=== PATIENT | female | born 1995 | race Two or more races ===

== ENCOUNTER 2018-11-09 09:20 | Inpatient (IN) | payer SELFPAY ==
[2018-11-09] MEDS ORDERED: Sodium Chloride 0.9% 1,000 ML IV ONE ×2 (09:45→11:02)
[2018-11-09] MEDS ORDERED: Ondansetron 4 MG/2 ML SDV IVPUSH ONE (09:45)
[2018-11-09] MEDS ORDERED: HYDROmorphone 1 MG/ML Syringe IVPUSH ONE (09:45)
--- NOTE | 2018-11-09 09:49 | EDM.PDOC ---
ED HPI GENERAL MEDICAL PROBLEM - General Stated Complaint: PAIN ON RT SIDE Time Seen by Provider: 11/09/18 09:37 - History of Present Illness INITIAL COMMENTS - FREE TEXT/NARRATIVE: HISTORY AND PHYSICAL: History of present illness: Patient is a 23-year-old female sensory concern of abdominal pain she states this is greatest in the right lower quadrant she was seen at [facility] yesterday for same and had ultrasound demonstrated a right ovarian cyst she states was no evidence of ruptured that time she states pain is worse today and she is concerned about appendicitis Review of systems: As per history of present illness and below otherwise all systems reviewed and negative. Past medical history: As per history of present illness and as reviewed below otherwise noncontributory. Surgical history: As per history of present illness and as reviewed below otherwise noncontributory. Social history: No reported history of drug or alcohol abuse. Family history: As per history of present illness and as reviewed below otherwise noncontributory. Physical exam: HEENT: Atraumatic, normocephalic, pupils reactive, negative for conjunctival pallor or scleral icterus, mucous membranes moist, throat clear, neck supple, nontender, trachea midline. Lungs: Clear to auscultation, breath sounds equal bilaterally, chest nontender. Heart: S1S2, regular, negative for clicks, rubs, or JVD. Abdomen: Soft, tenderness noted greatest in the right lower quadrant there is some voluntary guarding.. Negative for masses or hepatosplenomegaly. Negative for costovertebral tenderness. Pelvis: Stable nontender. Genitourinary: Deferred. Rectal: Deferred. Extremities: Atraumatic, negative for cords or calf pain. Neurovascular unremarkable. Neuro: Awake, alert, oriented. Cranial nerves II through XII unremarkable. Cerebellum unremarkable. Motor and sensory unremarkable throughout. Exam nonfocal. Diagnostics: EBC CMP hCG UA with reflex micral CT abdomen and pelvis Therapeutics: Normal saline 1 L bolus Dilaudid 1 mg IV Zofran 4 mg IV Impression: #1 abdominal pain #2 history of right ovarian cyst Definitive disposition and diagnosis as appropriate pending reevaluation and review of above. RLQ Pain Score (Numeric/FACES): 3 - Related Data Allergies Allergy/AdvReac Type Severity Reaction Status Date / Time No Known Allergies Allergy Verified 11/09/18 09:54 Home Meds: Home Meds . [No Known Home Meds] 09/11/14 [History] Past Medical History - Past Health History Medical/Surgical History: Denies Medical/Surgical History ED ROS GENERAL - Review of Systems Review Of Systems: ROS reveals no pertinent complaints other than HPI. ED EXAM, GENERAL - Physical Exam Exam: See Below (See dictated) Course - Vital Signs Last Recorded V/S: Last Vital Signs Temp 36.1 C 11/10/18 04:00 Pulse 100 11/10/18 04:00 Resp 14 11/10/18 04:00 BP 96/52 L 11/10/18 04:00 Pulse Ox 96 11/10/18 04:00 - Orders/Labs/Meds Orders: Active Orders 24 hr Category Date Time Status Notify Provider Consults [RC] ASDIRECTED Care 11/09/18 12:42 Active Consult to Physician [CONS] Stat Cons 11/09/18 12:41 Active Consult to Physician [CONS] Stat Cons 11/09/18 12:43 Active CULTURE BLOOD [BC] Stat Lab 11/09/18 10:50 Received CULTURE BLOOD [BC] Stat Lab 11/09/18 11:06 Received Blood Culture x2 Reflex Set [OM.PC] Stat Oth 11/09/18 10:42 Ordered Medication Orders Acetaminophen (Tylenol) 650 mg PO Q4H PRN PRN Reason: Pain (Mild 1-3)/fever Last Admin: 11/10/18 00:23 Dose: 650 mg Admin: 11/09/18 14:28 Dose: 650 mg Hydrocodone Bitart/Acetaminophen ([place] 325-5 Mg) 1 - 2 tab PO Q4H PRN PRN Reason: Pain (moderate 4-6) Last Admin: 11/10/18 05:17 Dose: 1 tab Docusate Sodium (Colace) 100 mg PO BID PRN PRN Reason: Constipation Metronidazole 500 mg/ Premix 100 mls @ 100 mls/hr IV Q6H FERMÍN Last Admin: 11/10/18 06:04 Dose: 100 mls/hr Infusion: 11/10/18 02:37 Dose: 100 mls/hr Admin: 11/10/18 01:37 Dose: 100 mls/hr Infusion: 11/09/18 18:59 Dose: 100 mls/hr Admin: 11/09/18 17:59 Dose: 100 mls/hr Piperacillin Sod/Tazobactam (Sod 3.375 gm/ Sodium Chloride) 50 mls @ 100 mls/ hr IV Q6H [facility] Last Admin: 11/10/18 05:11 Dose: 100 mls/hr Infusion: 11/10/18 00:43 Dose: 100 mls/hr Admin: 11/10/18 00:13 Dose: 100 mls/hr Infusion: 11/09/18 17:40 Dose: 100 mls/hr Admin: 11/09/18 17:10 Dose: 100 mls/hr Sodium Chloride (Normal Saline) 1,000 mls @ 125 mls/hr IV ASDIRECTED [facility] Last Admin: 11/10/18 00:14 Dose: 125 mls/hr Infusion: 11/09/18 22:28 Dose: 125 mls/hr Admin: 11/09/18 14:28 Dose: 125 mls/hr Ondansetron HCl (Zofran) 4 mg IVPUSH Q4H PRN PRN Reason: Nausea Labs: Laboratory Tests 11/09/18 11/09/18 11/09/18 Range/Units 10:00 10:00 10:00 WBC 25.84 H (4.0-11.0) K/uL RBC 4.40 (4.30-5.90) M/uL Hgb 13.5 (12.0-16.0) g/dL Hct 40.1 (36.0-46.0) % MCV 91.1 (80.0-98.0) fL MCH 30.7 (27.0-32.0) pg MCHC 33.7 (31.0-37.0) g/dL RDW Std Deviation 45.8 (28.0-62.0) fl RDW Coeff of Kina 14 (11.0-15.0) % Plt Count 304 (150-400) K/uL MPV 10.30 (7.40-12.00) fL Add Manual Diff YES Neutrophils % (Manual) 68 (48.0-80.0) % Band Neutrophils % 16 % Lymphocytes % (Manual) 14 L (16.0-40.0) % Monocytes % (Manual) 1 (0.0-15.0) % Eosinophils % (Manual) 1 (0.0-7.0) % Nucleated RBC % 0.0 /100WBC Absolute Seg Neuts 17.6 H (1.4-5.7) Band Neutrophils # 4.1 Lymphocytes # (Manual) 3.6 H (0.6-2.4) Monocytes # (Manual) 0.3 (0.0-0.8) Eosinophils # (Manual) 0.3 (0.0-0.7) Nucleated RBCs # 0 K/uL Lactate (0.20-2.00) mmol/L Sodium 140 (136-145) mmol/L Potassium 4.0 (3.5-5.1) mmol/L Chloride 105 (98-107) mmol/L Carbon Dioxide 24.8 (21.0-32.0) mmol/L BUN 15 (7.0-18.0) mg/dL Creatinine 1.1 H (0.6-1.0) mg/dL Est Cr Clr Drug Dosing 68.69 mL/min Estimated GFR (MDRD) > 60.0 ml/min Glucose 141 H (74-106) mg/dL Calcium 9.4 (8.5-10.1) mg/dL Total Bilirubin 1.0 (0.2-1.0) mg/dL AST 12 L (15-37) IU/L ALT 21 (14-63) IU/L Alkaline Phosphatase 112 (46-116) U/L Total Protein 8.0 (6.4-8.2) g/dL Albumin 3.7 (3.4-5.0) g/dL Globulin 4.3 H (2.6-4.0) g/dL Albumin/Globulin Ratio 0.9 (0.9-1.6) HCG, Qual NEGATIVE (NEG) Urine Color Urine Appearance Urine pH (5.0-8.0) Ur Specific [place] (1.001-1.035) Urine Protein (NEGATIVE) mg/dL Urine Glucose (UA) (NEGATIVE) mg/dL Urine Ketones (NEGATIVE) mg/dL Urine Occult Blood (NEGATIVE) Urine Nitrite (NEGATIVE) Urine Bilirubin (NEGATIVE) Urine Urobilinogen (<2.0) EU/dL Ur Leukocyte Esterase (NEGATIVE) Urine RBC (0-2/HPF) Urine WBC (0-5/HPF) Ur Epithelial Cells (NONE-FEW) Urine Bacteria (NEGATIVE) Urine Opiates Screen (NEGATIVE) Ur Oxycodone Screen (NEGATIVE) Urine Methadone Screen (NEGATIVE) Ur Barbiturates Screen (NEGATIVE) Ur Phencyclidine Scrn (NEGATIVE) Ur Amphetamine Screen (NEGATIVE) U Methamphetamines Scrn (NEGATIVE) U Benzodiazepines Scrn (NEGATIVE) U Cocaine Metab Screen (NEGATIVE) U Marijuana (THC) Screen (NEGATIVE) 11/09/18 11/09/18 11/09/18 Range/Units 10:50 11:57 11:57 WBC (4.0-11.0) K/uL RBC (4.30-5.90) M/uL Hgb (12.0-16.0) g/dL Hct (36.0-46.0) % MCV (80.0-98.0) fL MCH (27.0-32.0) pg MCHC (31.0-37.0) g/dL RDW Std Deviation (28.0-62.0) fl RDW Coeff of Kina (11.0-15.0) % Plt Count (150-400) K/uL MPV (7.40-12.00) fL Add Manual Diff Neutrophils % (Manual) (48.0-80.0) % Band Neutrophils % % Lymphocytes % (Manual) (16.0-40.0) % Monocytes % (Manual) (0.0-15.0) % Eosinophils % (Manual) (0.0-7.0) % Nucleated RBC % /100WBC Absolute Seg Neuts (1.4-5.7) Band Neutrophils # Lymphocytes # (Manual) (0.6-2.4) Monocytes # (Manual) (0.0-0.8) Eosinophils # (Manual) (0.0-0.7) Nucleated RBCs # K/uL Lactate 2.3 H (0.20-2.00) mmol/L Sodium (136-145) mmol/L Potassium (3.5-5.1) mmol/L Chloride (98-107) mmol/L Carbon Dioxide (21.0-32.0) mmol/L BUN (7.0-18.0) mg/dL Creatinine (0.6-1.0) mg/dL Est Cr Clr Drug Dosing mL/min Estimated GFR (MDRD) ml/min Glucose (74-106) mg/dL Calcium (8.5-10.1) mg/dL Total Bilirubin (0.2-1.0) mg/dL AST (15-37) IU/L ALT (14-63) IU/L Alkaline Phosphatase (46-116) U/L Total Protein (6.4-8.2) g/dL Albumin (3.4-5.0) g/dL Globulin (2.6-4.0) g/dL Albumin/Globulin Ratio (0.9-1.6) HCG, Qual (NEG) Urine Color YELLOW Urine Appearance CLEAR Urine pH 6.0 (5.0-8.0) Ur Specific [place] 1.015 (1.001-1.035) Urine Protein NEGATIVE (NEGATIVE) mg/dL Urine Glucose (UA) NEGATIVE (NEGATIVE) mg/dL Urine Ketones NEGATIVE (NEGATIVE) mg/dL Urine Occult Blood MODERATE H (NEGATIVE) Urine Nitrite NEGATIVE (NEGATIVE) Urine Bilirubin NEGATIVE (NEGATIVE) Urine Urobilinogen 0.2 (<2.0) EU/dL Ur Leukocyte Esterase NEGATIVE (NEGATIVE) Urine RBC 0-1 (0-2/HPF) Urine WBC 0-1 (0-5/HPF) Ur Epithelial Cells RARE (NONE-FEW) Urine Bacteria RARE (NEGATIVE) Urine Opiates Screen NEGATIVE (NEGATIVE) Ur Oxycodone Screen NEGATIVE (NEGATIVE) Urine Methadone Screen NEGATIVE (NEGATIVE) Ur Barbiturates Screen NEGATIVE (NEGATIVE) Ur Phencyclidine Scrn NEGATIVE (NEGATIVE) Ur Amphetamine Screen NEGATIVE (NEGATIVE) U Methamphetamines Scrn NEGATIVE (NEGATIVE) U Benzodiazepines Scrn NEGATIVE (NEGATIVE) U Cocaine Metab Screen NEGATIVE (NEGATIVE) U Marijuana (THC) Screen NEGATIVE (NEGATIVE) Meds: Medications Generic Name Dose Route Start Last Admin Trade Name Freq PRN Reason Stop Dose Admin Acetaminophen 650 mg 11/09/18 14:09 11/10/18 00:23 Tylenol PO 650 mg Q4H PRN Administration Pain (Mild 1-3)/fever Hydrocodone Bitart/Acetaminophen 1 - 2 tab 11/09/18 14:09 11/10/18 05:17 [place] 325-5 Mg PO 1 tab Q4H PRN Administration Pain (moderate 4-6) Docusate Sodium 100 mg 11/09/18 14:09 Colace PO BID PRN Constipation Metronidazole 500 mg/ Premix 100 mls @ 100 mls/hr 11/09/18 19:00 11/10/18 06: 04 IV 100 mls/hr Q6H FERMÍN Administration Piperacillin Sod/Tazobactam 50 mls @ 100 mls/hr 11/09/18 18:00 11/10/18 05:11 Sod 3.375 gm/ Sodium Chloride IV 100 mls/hr Q6H FERMÍN Administration Sodium Chloride 1,000 mls @ 125 mls/hr 11/09/18 14:15 11/10/18 00:14 Normal Saline IV 125 mls/hr ASDIRECTED FERMÍN Administration Ondansetron HCl 4 mg 11/09/18 14:09 Zofran IVPUSH Q4H PRN Nausea Discontinued Medications Generic Name Dose Route Start Last Admin Trade Name Freq PRN Reason Stop Dose Admin Hydromorphone HCl 1 mg 11/09/18 09:45 11/09/18 12:14 Dilaudid IVPUSH 11/09/18 09:46 1 mg ONETIME ONE Administration Sodium Chloride 1,000 mls @ 999 mls/hr 11/09/18 09:45 11/09/18 10:04 Normal Saline IV 11/09/18 10:45 999 mls/hr STAT ONE Administration Sodium Chloride 1,000 mls @ 999 mls/hr 11/09/18 11:02 11/09/18 11:44 Normal Saline IV 11/09/18 12:02 999 mls/hr .Bolus ONE Administration Piperacillin Sod/Tazobactam 50 mls @ 100 mls/hr 11/09/18 12:07 11/09/18 12:15 Sod 3.375 gm/ Sodium Chloride IV 11/09/18 12:36 100 mls/hr ONETIME ONE Administration Metronidazole 500 mg/ Premix 100 mls @ 100 mls/hr 11/09/18 12:08 11/09/18 13: 31 IV 11/09/18 13:07 100 mls/hr ONETIME ONE Administration Ondansetron HCl 4 mg 11/09/18 09:45 11/09/18 10:04 Zofran IVPUSH 11/09/18 09:46 4 mg ONETIME ONE Administration Departure - Departure Time of Disposition: 07:49 Disposition: Admitted As Inpatient 66 Condition: Good Clinical Impression: Abdominal pain - Discharge Information - My Orders Last 24 Hours: My Active Orders 11/09/18 10:42 Blood Culture x2 Reflex Set [OM.PC] Stat 11/09/18 10:50 CULTURE BLOOD [BC] Stat 11/09/18 11:06 CULTURE BLOOD [BC] Stat 11/09/18 12:41 Consult to Physician [CONS] Stat 11/09/18 12:42 Notify Provider Consults [RC] ASDIRECTED 11/09/18 12:43 Consult to Physician [CONS] Stat - Assessment/Plan Last 24 Hours: My Active Orders 11/09/18 10:42 Blood Culture x2 Reflex Set [OM.PC] Stat 11/09/18 10:50 CULTURE BLOOD [BC] Stat 11/09/18 11:06 CULTURE BLOOD [BC] Stat 11/09/18 12:41 Consult to Physician [CONS] Stat 11/09/18 12:42 Notify Provider Consults [RC] ASDIRECTED 11/09/18 12:43 Consult to Physician [CONS] Stat
[2018-11-09 10:47] LABS: CHLORIDE,CL 105 mmol/L (98-107); SODIUM,NA 140 mmol/L (136-145)
--- NOTE | 2018-11-09 11:26 | CT ---
CT of the abdomen and pelvis without contrast. HISTORY: Pain TECHNIQUE: Axial CT images were obtained of the abdomen and pelvis without contrast. Coronal and sagittal reconstructions obtained. Comparison: 08/08/2014. FINDINGS: The lung bases are clear, no pleural effusion. The liver, spleen, adrenal glands, and pancreas appear unremarkable for noncontrast examination. The gallbladder appears normal. There is no bulky retroperitoneal lymphadenopathy. No abdominal ascites. Mild generalized nonspecific mesenteric stranding. There is a 4 mm nonobstructing left renal stone. The large and small bowel are normal in caliber without evidence of obstruction. The appendix appears normal. There is no bulky pelvic lymphadenopathy. No free fluid. No free air. The urinary bladder appears normal. There is a soft tissue fullness just posterior to the ureter and extending to the region of the ovaries. Not well characterized without IV contrast. There is an IUD within the uterus. The visualized osseous structures appear normal. IMPRESSION: 1. Soft tissue prominence in the region of the right ovary with moderately dense fluid and/or soft tissue within the adnexal regions and pelvis, not well characterized without IV contrast. 2. Mild generalized stranding within the mesentery, nonspecific without a focal abnormality. 3. Nonobstructing left nephrolithiasis.
[2018-11-09] MEDS ORDERED: Piperacillin/Tazobactam 3.375 GM in Sodium Chloride 0.9% 50 ML IV ONE (12:07)
[2018-11-09] MEDS ORDERED: metroNIDAZOLE/Normal Saline 500 MG in Premix Bag 1 BAG IV ONE (12:08)
--- NOTE | 2018-11-09 13:33 | PCM.CONS ---
H&P History of Present Illness - General Date of Service: 11/09/18 Admit Problem/Dx: Admission Diagnosis/Problem Admission Diagnosis/Problem Abdominal pain Source of Information: Patient History Limitations: Reports: No Limitations - History of Present Illness Initial Comments - Free Text/Narative: Patient is a 23-year-old female who presented to the emergency room today complaining of worsening abdominal pain. She has been having abdominal pain for the last 2-3 weeks, but it recently got worse. She had been seen by [facility] yesterday. Apparently, a transvaginal ultrasound was done suggesting a right ovarian cyst. His symptoms got worse. She presented back to the emergency room today and was evaluated by Dr. Goss. Patient does have an elevated white count and lactate. A CT scan did suggest an ovarian etiology. There was no evidence of periappendiceal or appendiceal reaction. She did have some associated nausea and vomiting. Also states her appetite is good and she is getting hungry. Duration of Symptoms: Reports: Day(s): Location: Reports: Abdomen, Back, Pelvis Quality: Reports: Pressure, Same as Previous Episode Severity: Moderate Improves with: Reports: Rest Worsens with: Reports: Movement Context: Reports: Sick Contact Associated Symptoms: Reports: Nausea/Vomiting. Denies: Diaphoresis, Fever/ Chills, Headaches, Loss of Appetite, Malaise RLQ Pain Score (Numeric/FACES): 5 - Related Data Allergies/Adverse Reactions: Allergies Allergy/AdvReac Type Severity Reaction Status Date / Time No Known Allergies Allergy Verified 11/09/18 09:54 Home Medications: Home Meds . [No Known Home Meds] 07/04/14 [History] Past Medical History - Past Health History Medical/Surgical History: Denies Medical/Surgical History Social & Family History - Family History Family Medical History: Noncontributory - Tobacco Use Smoking Status *Q: Never Smoker Second Hand Smoke Exposure: No - Caffeine Use Caffeine Use: Reports: None - Recreational Drug Use Recreational Drug Use: No H&P Review of Systems - Review of Systems: Review Of Systems: See Below General: Reports: Chills. Denies: Fever, Malaise, Weakness, Fatigue, Decreased Appetite HEENT: Reports: No Symptoms Pulmonary: Denies: Shortness of Breath, Wheezing Cardiovascular: Denies: Chest Pain, Palpitations Gastrointestinal: Reports: Abdominal Pain. Denies: Anorexia, Black Stool, Bloody Stool, Constipation, Diarrhea, Decreased Appetite Genitourinary: Denies: Dysuria, Frequency, Burning, Pain, Urgency Musculoskeletal: Reports: No Symptoms Skin: Reports: No Symptoms Psychiatric: Reports: No Symptoms Neurological: Reports: No Symptoms Hematologic/Lymphatic: Reports: No Symptoms Immunologic: Reports: No Symptoms Exam - Exam Exam: See Below - Vital Signs Vital Signs: Last Vital Signs Temp 96.4 F 11/09/18 10:22 Pulse 99 11/09/18 11:45 Resp 16 11/09/18 11:45 BP 116/54 L 11/09/18 12:19 Pulse Ox 98 11/09/18 11:45 Weight: 135 lb - Exam General: Alert, Oriented, Cooperative, Mild Distress HEENT: Conjunctiva Clear, EACs Clear, Pupils Equal, Pupils Reactive. No: Scleral Icterus Neck: Supple, Trachea Midline Lungs: Clear to Auscultation, Normal Respiratory Effort Cardiovascular: Regular Rate, Regular Rhythm. No: Tachycardia GI/Abdominal Exam: Normal Bowel Sounds, Soft, No Distention, No Mass, Tender ( both lower quadrants). No: Guarding, Rigid, Rebound (Female) Exam: Deferred Rectal (Female) Exam: Deferred Back Exam: Normal Inspection Extremities: Normal Inspection Peripheral Pulses: 4+: Posterior Tibial (L), Posterior Tibial (R), Dorsalis Pedis (L), Dorsalis Pedis (R) Skin: Warm, Dry, Intact Psychiatric: Alert, Normal Affect, Normal Mood - Patient Data Lab Results Last 24 hrs: Laboratory Results - last 24 hr 11/09/18 11/09/18 11/09/18 Range/Units 10:00 10:00 10:00 WBC 25.84 H (4.0-11.0) K/uL RBC 4.40 (4.30-5.90) M/uL Hgb 13.5 (12.0-16.0) g/dL Hct 40.1 (36.0-46.0) % MCV 91.1 (80.0-98.0) fL MCH 30.7 (27.0-32.0) pg MCHC 33.7 (31.0-37.0) g/dL RDW Std Deviation 45.8 (28.0-62.0) fl RDW Coeff of Kina 14 (11.0-15.0) % Plt Count 304 (150-400) K/uL MPV 10.30 (7.40-12.00) fL Add Manual Diff YES Neutrophils % (Manual) 68 (48.0-80.0) % Band Neutrophils % 16 % Lymphocytes % (Manual) 14 L (16.0-40.0) % Monocytes % (Manual) 1 (0.0-15.0) % Eosinophils % (Manual) 1 (0.0-7.0) % Nucleated RBC % 0.0 /100WBC Absolute Seg Neuts 17.6 H (1.4-5.7) Band Neutrophils # 4.1 Lymphocytes # (Manual) 3.6 H (0.6-2.4) Monocytes # (Manual) 0.3 (0.0-0.8) Eosinophils # (Manual) 0.3 (0.0-0.7) Nucleated RBCs # 0 K/uL Lactate (0.20-2.00) mmol/L Sodium 140 (136-145) mmol/L Potassium 4.0 (3.5-5.1) mmol/L Chloride 105 (98-107) mmol/L Carbon Dioxide 24.8 (21.0-32.0) mmol/L BUN 15 (7.0-18.0) mg/dL Creatinine 1.1 H (0.6-1.0) mg/dL Est Cr Clr Drug Dosing 68.69 mL/min Estimated GFR (MDRD) > 60.0 ml/min Glucose 141 H (74-106) mg/dL Calcium 9.4 (8.5-10.1) mg/dL Total Bilirubin 1.0 (0.2-1.0) mg/dL AST 12 L (15-37) IU/L ALT 21 (14-63) IU/L Alkaline Phosphatase 112 (46-116) U/L Total Protein 8.0 (6.4-8.2) g/dL Albumin 3.7 (3.4-5.0) g/dL Globulin 4.3 H (2.6-4.0) g/dL Albumin/Globulin Ratio 0.9 (0.9-1.6) HCG, Qual NEGATIVE (NEG) Urine Color Urine Appearance Urine pH (5.0-8.0) Ur Specific [place] (1.001-1.035) Urine Protein (NEGATIVE) mg/dL Urine Glucose (UA) (NEGATIVE) mg/dL Urine Ketones (NEGATIVE) mg/dL Urine Occult Blood (NEGATIVE) Urine Nitrite (NEGATIVE) Urine Bilirubin (NEGATIVE) Urine Urobilinogen (<2.0) EU/dL Ur Leukocyte Esterase (NEGATIVE) Urine RBC (0-2/HPF) Urine WBC (0-5/HPF) Ur Epithelial Cells (NONE-FEW) Urine Bacteria (NEGATIVE) Urine Opiates Screen (NEGATIVE) Ur Oxycodone Screen (NEGATIVE) Urine Methadone Screen (NEGATIVE) Ur Barbiturates Screen (NEGATIVE) Ur Phencyclidine Scrn (NEGATIVE) Ur Amphetamine Screen (NEGATIVE) U Methamphetamines Scrn (NEGATIVE) U Benzodiazepines Scrn (NEGATIVE) U Cocaine Metab Screen (NEGATIVE) U Marijuana (THC) Screen (NEGATIVE) 11/09/18 11/09/18 11/09/18 Range/Units 10:50 11:57 11:57 WBC (4.0-11.0) K/uL RBC (4.30-5.90) M/uL Hgb (12.0-16.0) g/dL Hct (36.0-46.0) % MCV (80.0-98.0) fL MCH (27.0-32.0) pg MCHC (31.0-37.0) g/dL RDW Std Deviation (28.0-62.0) fl RDW Coeff of Kina (11.0-15.0) % Plt Count (150-400) K/uL MPV (7.40-12.00) fL Add Manual Diff Neutrophils % (Manual) (48.0-80.0) % Band Neutrophils % % Lymphocytes % (Manual) (16.0-40.0) % Monocytes % (Manual) (0.0-15.0) % Eosinophils % (Manual) (0.0-7.0) % Nucleated RBC % /100WBC Absolute Seg Neuts (1.4-5.7) Band Neutrophils # Lymphocytes # (Manual) (0.6-2.4) Monocytes # (Manual) (0.0-0.8) Eosinophils # (Manual) (0.0-0.7) Nucleated RBCs # K/uL Lactate 2.3 H (0.20-2.00) mmol/L Sodium (136-145) mmol/L Potassium (3.5-5.1) mmol/L Chloride (98-107) mmol/L Carbon Dioxide (21.0-32.0) mmol/L BUN (7.0-18.0) mg/dL Creatinine (0.6-1.0) mg/dL Est Cr Clr Drug Dosing mL/min Estimated GFR (MDRD) ml/min Glucose (74-106) mg/dL Calcium (8.5-10.1) mg/dL Total Bilirubin (0.2-1.0) mg/dL AST (15-37) IU/L ALT (14-63) IU/L Alkaline Phosphatase (46-116) U/L Total Protein (6.4-8.2) g/dL Albumin (3.4-5.0) g/dL Globulin (2.6-4.0) g/dL Albumin/Globulin Ratio (0.9-1.6) HCG, Qual (NEG) Urine Color YELLOW Urine Appearance CLEAR Urine pH 6.0 (5.0-8.0) Ur Specific [place] 1.015 (1.001-1.035) Urine Protein NEGATIVE (NEGATIVE) mg/dL Urine Glucose (UA) NEGATIVE (NEGATIVE) mg/dL Urine Ketones NEGATIVE (NEGATIVE) mg/dL Urine Occult Blood MODERATE H (NEGATIVE) Urine Nitrite NEGATIVE (NEGATIVE) Urine Bilirubin NEGATIVE (NEGATIVE) Urine Urobilinogen 0.2 (<2.0) EU/dL Ur Leukocyte Esterase NEGATIVE (NEGATIVE) Urine RBC 0-1 (0-2/HPF) Urine WBC 0-1 (0-5/HPF) Ur Epithelial Cells RARE (NONE-FEW) Urine Bacteria RARE (NEGATIVE) Urine Opiates Screen NEGATIVE (NEGATIVE) Ur Oxycodone Screen NEGATIVE (NEGATIVE) Urine Methadone Screen NEGATIVE (NEGATIVE) Ur Barbiturates Screen NEGATIVE (NEGATIVE) Ur Phencyclidine Scrn NEGATIVE (NEGATIVE) Ur Amphetamine Screen NEGATIVE (NEGATIVE) U Methamphetamines Scrn NEGATIVE (NEGATIVE) U Benzodiazepines Scrn NEGATIVE (NEGATIVE) U Cocaine Metab Screen NEGATIVE (NEGATIVE) U Marijuana (THC) Screen NEGATIVE (NEGATIVE) Result Diagrams: 11/09/18 10:00 11/09/18 10:00 Consult PN Assessment/Plan Procedures: Procedures CHORIONIC GONADOTROPIN ASSAY (07/04/14) COMPLETE CBC W/AUTO DIFF WBC (07/04/14) COMPREHEN METABOLIC PANEL (07/04/14) CT ABD & PELV 1/> REGNS (08/08/14) EMERGENCY DEPT VISIT (07/04/14) ROUTINE VENIPUNCTURE (07/04/14) SMEAR WET [place] SALINE/INK (08/02/14) URINALYSIS AUTO W/SCOPE (07/04/14) (1) Abdominal pain SNOMED Code(s): 32748718 Code(s): R10.9 - UNSPECIFIED ABDOMINAL PAIN Priority: High Problem List Initiated/Reviewed/Updated: Yes Plan: I do not think this is appendicitis. Given the complex "mass" in the right ovary, recommend Hand Alterations Tailor consultation.
[2018-11-09] MEDS ORDERED: Docusate Sodium 100 MG Cap PO PRN (14:09)
[2018-11-09] MEDS ORDERED: Ondansetron 4 MG/2 ML SDV IVPUSH PRN (14:09)
--- NOTE | 2018-11-09 14:23 | PCM.HP ---
<Tabby Griggs M - Last Filed: 11/09/18 14:15> H&P History of Present Illness - General Date of Service: 11/09/18 Admit Problem/Dx: Admission Diagnosis/Problem Admission Diagnosis/Problem Abdominal pain - History of Present Illness Initial Comments - Free Text/Narative: This 23 year old female, with pmh of ovarian cysts presented to the ED today with worsening R sided abdominal pain. She reports 3 days ago she started having R sided abdominal pain and felt it was a cyst. She called her [facility] and had an ultrasound yesterday, but did not see a provider. She reports this morning the pain got so intense she could not bear it any longer. It started wrapping around her back and now her entire abdomen was sore. She denies fevers but reports chills at home with some nausea. No diarrhea. She denies chest pain or SOB. No head or URI symptoms. No dysuria or frequency and no vaginal discharged. She just finished her period a few days ago. She has recently had intercourse on Tuesday and it was unprotected, denies history of STDs. IUD is in place, has not checked for her string, never has. IUD has been in place for about 1 year. She denies tobacco use, social alcohol use and no recreational drug use. In the ED, leukocytosis noted at 25,000 with bandemia of 16. Lactate elevated at 2.3, BUN 15, Cr 1.1. HCG negative. Ua negative and u tox negative. Abdominal CT obtained which revealed soft tissue prominence in the region of the R ovary with moderately dense fluid and or soft tissue within the adnexal regions and pelvis, not well characterized without IV contrast. She was treated with 2 L NS bolus along with Zosyn and Flagyl. Dr Plummer, general surgery consulted in ED, please see note. SHe will be admitted inpatient for sepsis secondary to possible PID or tubal ovarian abscess. RLQ Pain Score (Numeric/FACES): 5 - Related Data Allergies/Adverse Reactions: Allergies Allergy/AdvReac Type Severity Reaction Status Date / Time No Known Allergies Allergy Verified 11/09/18 09:54 Home Medications: Home Meds . [No Known Home Meds] 07/04/14 [History] Past Medical History - Past Health History Medical/Surgical History: Denies Medical/Surgical History Cardiovascular History: Reports: None. Denies: Afib, Blood Clots/VTE/DVT, Hypertension Respiratory History: Reports: None. Denies: Asthma, SOB Gastrointestinal History: Denies: GERD, GI Bleed [facility] History: Reports: Other (See Below) (ovarian cysts) Musculoskeletal History: Reports: None Endocrine/Metabolic History: Reports: None. Denies: Diabetes, Type II Social & Family History - Family History Family Medical History: Noncontributory - Tobacco Use Smoking Status *Q: Never Smoker Second Hand Smoke Exposure: No - Caffeine Use Caffeine Use: Reports: Coffee - Alcohol Use Alcohol Use Frequency: Socially - Recreational Drug Use Recreational Drug Use: No - Living Situation & Occupation Living situation: Reports: Single, with Family Occupation: Employed H&P Review of Systems - Review of Systems: Review Of Systems: See Below General: Reports: Chills, Malaise HEENT: Reports: No Symptoms. Denies: Headaches, Sinus Congestion, Sore Throat Pulmonary: Reports: No Symptoms. Denies: Shortness of Breath, Wheezing, Cough Cardiovascular: Reports: No Symptoms. Denies: Chest Pain, Palpitations, Edema Gastrointestinal: Reports: Abdominal Pain (R sided, now has moved to be more diffuse), Nausea. Denies: Black Stool, Bloody Stool, Constipation, Diarrhea Genitourinary: Denies: Dysuria, Frequency, Pain, Urgency, Discharge, Abnormal Menses, Dysmenorrhea, Flank Pain Musculoskeletal: Reports: No Symptoms Skin: Reports: No Symptoms Psychiatric: Reports: No Symptoms Neurological: Reports: No Symptoms Hematologic/Lymphatic: Reports: No Symptoms Immunologic: Reports: No Symptoms Exam - Exam Exam: See Below - Vital Signs Vital Signs: Last Vital Signs Temp 96.4 F 11/09/18 10:22 Pulse 99 11/09/18 11:45 Resp 16 11/09/18 11:45 BP 116/54 L 11/09/18 12:19 Pulse Ox 98 11/09/18 11:45 Weight: 71.668 kg - Exam General: Alert, Oriented, Cooperative HEENT: Conjunctiva Clear, Posterior Pharynx Clear Neck: Supple Lungs: Clear to Auscultation, Normal Respiratory Effort Cardiovascular: Regular Rate, Regular Rhythm GI/Abdominal Exam: Normal Bowel Sounds, Soft, Tender (diffusely, mostly located to RLQ and LLQ) (Female) Exam: Adnexal Tenderness, Cervix Motion Tenderness, Vaginal Bleeding (scant left over bleeding from menses), Vaginal Discharge, Other (foul smelling odor during exam with purulent like vaginal drainage) Back Exam: Normal Inspection, Full Range of Motion. No: CVA Tenderness (L), CVA Tenderness (R) Extremities: Normal Inspection, Normal Range of Motion, Non-Tender, No Pedal Edema Neuro Extensive - Mental Status: Alert, Oriented x3 Neuro Extensive - Motor, Sensory, Reflexes: CN II-XII Intact Psychiatric: Alert, Normal Affect, Normal Mood - Patient Data Lab Results Last 24 hrs: Laboratory Results - last 24 hr 11/09/18 11/09/18 11/09/18 Range/Units 10:00 10:00 10:00 WBC 25.84 H (4.0-11.0) K/uL RBC 4.40 (4.30-5.90) M/uL Hgb 13.5 (12.0-16.0) g/dL Hct 40.1 (36.0-46.0) % MCV 91.1 (80.0-98.0) fL MCH 30.7 (27.0-32.0) pg MCHC 33.7 (31.0-37.0) g/dL RDW Std Deviation 45.8 (28.0-62.0) fl RDW Coeff of Kina 14 (11.0-15.0) % Plt Count 304 (150-400) K/uL MPV 10.30 (7.40-12.00) fL Add Manual Diff YES Neutrophils % (Manual) 68 (48.0-80.0) % Band Neutrophils % 16 % Lymphocytes % (Manual) 14 L (16.0-40.0) % Monocytes % (Manual) 1 (0.0-15.0) % Eosinophils % (Manual) 1 (0.0-7.0) % Nucleated RBC % 0.0 /100WBC Absolute Seg Neuts 17.6 H (1.4-5.7) Band Neutrophils # 4.1 Lymphocytes # (Manual) 3.6 H (0.6-2.4) Monocytes # (Manual) 0.3 (0.0-0.8) Eosinophils # (Manual) 0.3 (0.0-0.7) Nucleated RBCs # 0 K/uL Lactate (0.20-2.00) mmol/L Sodium 140 (136-145) mmol/L Potassium 4.0 (3.5-5.1) mmol/L Chloride 105 (98-107) mmol/L Carbon Dioxide 24.8 (21.0-32.0) mmol/L BUN 15 (7.0-18.0) mg/dL Creatinine 1.1 H (0.6-1.0) mg/dL Est Cr Clr Drug Dosing 68.69 mL/min Estimated GFR (MDRD) > 60.0 ml/min Glucose 141 H (74-106) mg/dL Calcium 9.4 (8.5-10.1) mg/dL Total Bilirubin 1.0 (0.2-1.0) mg/dL AST 12 L (15-37) IU/L ALT 21 (14-63) IU/L Alkaline Phosphatase 112 (46-116) U/L Total Protein 8.0 (6.4-8.2) g/dL Albumin 3.7 (3.4-5.0) g/dL Globulin 4.3 H (2.6-4.0) g/dL Albumin/Globulin Ratio 0.9 (0.9-1.6) HCG, Qual NEGATIVE (NEG) Urine Color Urine Appearance Urine pH (5.0-8.0) Ur Specific [place] (1.001-1.035) Urine Protein (NEGATIVE) mg/dL Urine Glucose (UA) (NEGATIVE) mg/dL Urine Ketones (NEGATIVE) mg/dL Urine Occult Blood (NEGATIVE) Urine Nitrite (NEGATIVE) Urine Bilirubin (NEGATIVE) Urine Urobilinogen (<2.0) EU/dL Ur Leukocyte Esterase (NEGATIVE) Urine RBC (0-2/HPF) Urine WBC (0-5/HPF) Ur Epithelial Cells (NONE-FEW) Urine Bacteria (NEGATIVE) Urine Opiates Screen (NEGATIVE) Ur Oxycodone Screen (NEGATIVE) Urine Methadone Screen (NEGATIVE) Ur Barbiturates Screen (NEGATIVE) Ur Phencyclidine Scrn (NEGATIVE) Ur Amphetamine Screen (NEGATIVE) U Methamphetamines Scrn (NEGATIVE) U Benzodiazepines Scrn (NEGATIVE) U Cocaine Metab Screen (NEGATIVE) U Marijuana (THC) Screen (NEGATIVE) 11/09/18 11/09/18 11/09/18 Range/Units 10:50 11:57 11:57 WBC (4.0-11.0) K/uL RBC (4.30-5.90) M/uL Hgb (12.0-16.0) g/dL Hct (36.0-46.0) % MCV (80.0-98.0) fL MCH (27.0-32.0) pg MCHC (31.0-37.0) g/dL RDW Std Deviation (28.0-62.0) fl RDW Coeff of Kina (11.0-15.0) % Plt Count (150-400) K/uL MPV (7.40-12.00) fL Add Manual Diff Neutrophils % (Manual) (48.0-80.0) % Band Neutrophils % % Lymphocytes % (Manual) (16.0-40.0) % Monocytes % (Manual) (0.0-15.0) % Eosinophils % (Manual) (0.0-7.0) % Nucleated RBC % /100WBC Absolute Seg Neuts (1.4-5.7) Band Neutrophils # Lymphocytes # (Manual) (0.6-2.4) Monocytes # (Manual) (0.0-0.8) Eosinophils # (Manual) (0.0-0.7) Nucleated RBCs # K/uL Lactate 2.3 H (0.20-2.00) mmol/L Sodium (136-145) mmol/L Potassium (3.5-5.1) mmol/L Chloride (98-107) mmol/L Carbon Dioxide (21.0-32.0) mmol/L BUN (7.0-18.0) mg/dL Creatinine (0.6-1.0) mg/dL Est Cr Clr Drug Dosing mL/min Estimated GFR (MDRD) ml/min Glucose (74-106) mg/dL Calcium (8.5-10.1) mg/dL Total Bilirubin (0.2-1.0) mg/dL AST (15-37) IU/L ALT (14-63) IU/L Alkaline Phosphatase (46-116) U/L Total Protein (6.4-8.2) g/dL Albumin (3.4-5.0) g/dL Globulin (2.6-4.0) g/dL Albumin/Globulin Ratio (0.9-1.6) HCG, Qual (NEG) Urine Color YELLOW Urine Appearance CLEAR Urine pH 6.0 (5.0-8.0) Ur Specific [place] 1.015 (1.001-1.035) Urine Protein NEGATIVE (NEGATIVE) mg/dL Urine Glucose (UA) NEGATIVE (NEGATIVE) mg/dL Urine Ketones NEGATIVE (NEGATIVE) mg/dL Urine Occult Blood MODERATE H (NEGATIVE) Urine Nitrite NEGATIVE (NEGATIVE) Urine Bilirubin NEGATIVE (NEGATIVE) Urine Urobilinogen 0.2 (<2.0) EU/dL Ur Leukocyte Esterase NEGATIVE (NEGATIVE) Urine RBC 0-1 (0-2/HPF) Urine WBC 0-1 (0-5/HPF) Ur Epithelial Cells RARE (NONE-FEW) Urine Bacteria RARE (NEGATIVE) Urine Opiates Screen NEGATIVE (NEGATIVE) Ur Oxycodone Screen NEGATIVE (NEGATIVE) Urine Methadone Screen NEGATIVE (NEGATIVE) Ur Barbiturates Screen NEGATIVE (NEGATIVE) Ur Phencyclidine Scrn NEGATIVE (NEGATIVE) Ur Amphetamine Screen NEGATIVE (NEGATIVE) U Methamphetamines Scrn NEGATIVE (NEGATIVE) U Benzodiazepines Scrn NEGATIVE (NEGATIVE) U Cocaine Metab Screen NEGATIVE (NEGATIVE) U Marijuana (THC) Screen NEGATIVE (NEGATIVE) Result Diagrams: 11/09/18 10:00 11/09/18 10:00 *Q Meaningful Use (ADM) - VTE Risk Assess *Q Each Risk Factor Represents 1 Point: None Total Score 1 Point Risk Factors: 0 Each Risk Factor Represents 2 Points: None Total Score 2 Point Risk Factors: 0 Each Risk Factor Represents 3 Points: None Total Score 3 Point Risk Factors: 0 Each Risk Factor Represents 5 Points: None Total Score 5 Point Risk Factors: 0 Venous Thromboembolism Risk Factor Score *Q: 0 - Problem List (1) Sepsis SNOMED Code(s): 97646893 ICD Code: A41.9 - SEPSIS, UNSPECIFIED ORGANISM Status: Acute Current Visit: Yes (2) Abdominal pain SNOMED Code(s): 33481011 ICD Code: R10.9 - UNSPECIFIED ABDOMINAL PAIN Status: Acute Priority: High Current Visit: No (3) PID (acute pelvic inflammatory disease) SNOMED Code(s): 206477466 ICD Code: N73.0 - ACUTE PARAMETRITIS AND PELVIC CELLULITIS Status: Suspected Current Visit: Yes (4) IUD (intrauterine device) in place SNOMED Code(s): 662624437, 922089947 ICD Code: Z97.5 - PRESENCE OF (INTRAUTERINE) CONTRACEPTIVE DEVICE Status: Chronic Current Visit: Yes (5) TOA (tubo-ovarian abscess) SNOMED Code(s): 70512375 ICD Code: N70.93 - SALPINGITIS AND OOPHORITIS, UNSPECIFIED Status: Suspected Current Visit: Yes Problem List Initiated/Reviewed/Updated: Yes Orders Last 24hrs: Active Orders 24 hr Category Date Time Status Patient Status [ADT] Stat ADT 11/09/18 13:05 Active Intake and Output [RC] QSHIFT Care 11/09/18 14:10 Ordered May Shower [RC] ASDIRECTED Care 11/09/18 14:09 Ordered Notify Provider Consults [RC] ASDIRECTED Care 11/09/18 12:42 Active Oxygen Therapy [RC] PRN Care 11/09/18 14:10 Ordered Up ad [place] [RC] ASDIRECTED Care 11/09/18 14:09 Ordered VTE/DVT Education [RC] PER UNIT ROUTINE Care 11/09/18 14:10 Ordered Vital Signs [RC] Q4H Care 11/09/18 14:10 Ordered Consult to Physician [CONS] Stat Cons 11/09/18 12:41 Active Consult to Physician [CONS] Stat Cons 11/09/18 12:43 Active Regular Diet [DIET] Diet 11/09/18 Lunch Ordered BASIC METABOLIC PANEL,BMP [CHEM] AM Lab 11/10/18 05:11 Ordered BASIC METABOLIC PANEL,BMP [CHEM] AM Lab 11/11/18 05:11 Ordered BASIC METABOLIC PANEL,BMP [CHEM] AM Lab 11/12/18 05:11 Ordered CBC WITH AUTO DIFF [HEME] AM Lab 11/10/18 05:11 Ordered CBC WITH AUTO DIFF [HEME] AM Lab 11/11/18 05:11 Ordered CBC WITH AUTO DIFF [HEME] AM Lab 11/12/18 05:11 Ordered CHLAMYDIA AND GONORRHEA BY TMA Routine Lab 11/09/18 14:08 Ordered CULTURE BLOOD [BC] Stat Lab 11/09/18 10:50 Received CULTURE BLOOD [BC] Stat Lab 11/09/18 11:06 Received CULTURE BODY FLUID + SMEAR [RM] Routine Lab 11/09/18 14:08 Ordered HIV12 AG/AB 4TH GEN [CHEM] Routine Lab 11/09/18 14:14 Ordered RAPID PLASMA REAGIN, QUANT [REF] Routine Lab 11/09/18 14:14 Ordered TRICH/YING/CAND BY DNA PROBE [MOLEC] Routine Lab 11/09/18 14:08 Ordered Acetaminophen [Tylenol] Med 11/09/18 14:09 Ordered 650 mg PO Q4H PRN Acetaminophen/HYDROcodone [[place] 325-5 MG] Med 11/09/18 14:09 Ordered 1 - 2 tab PO Q4H PRN Docusate Sodium [Colace] Med 11/09/18 14:09 Ordered 100 mg PO BID PRN Ondansetron [Zofran] Med 11/09/18 14:09 Ordered 4 mg IVPUSH Q4H PRN Piperacillin/Tazobactam [Piperacil-Tazobact] 3.375 gm Med 11/09/18 18:00 Ordered Sodium Chloride 0.9% [Normal Saline] 50 ml IV Q6H Sodium Chloride 0.9% @ 125 MLS/HR (1000ml) Med 11/09/18 14:15 Ordered Sodium Chloride 0.9% [Normal Saline] 1,000 ml IV ASDIRECTED metroNIDAZOLE/Normal Saline [Flagyl 500 MG in NS 100 ML Med 11/09/18 18:00 Ordered ] 500 mg Premix Bag 1 bag IV QID Blood Culture x2 Reflex Set [OM.PC] Stat Oth 11/09/18 10:42 Ordered Sequential Compression Device [OM.PC] Per Unit Routine Oth 11/09/18 14:10 Ordered Resuscitation Status Routine Resus Stat 11/09/18 14:09 Ordered Medication Orders Acetaminophen (Tylenol) 650 mg PO Q4H PRN PRN Reason: Pain (Mild 1-3)/fever Hydrocodone Bitart/Acetaminophen ([place] 325-5 Mg) 1 - 2 tab PO Q4H PRN PRN Reason: Pain (moderate 4-6) Docusate Sodium (Colace) 100 mg PO BID PRN PRN Reason: Constipation Metronidazole 500 mg/ Premix 100 mls @ 100 mls/hr IV QID FERMÍN Piperacillin Sod/Tazobactam (Sod 3.375 gm/ Sodium Chloride) 50 mls @ 100 mls/ hr IV Q6H FERMÍN Sodium Chloride (Normal Saline) 1,000 mls @ 125 mls/hr IV ASDIRECTED FERMÍN Ondansetron HCl (Zofran) 4 mg IVPUSH Q4H PRN PRN Reason: Nausea Assessment/Plan Comment:: This 23 year old female admitted with sepsis secondary to suspected PID 1. Sepsis: Given 2 L NS in the ED, BP improved to 110-120 SBP from 90 SBP upon arrival to ED. Will continue IVFs and monitor lactic acid until normalized. BC pending. 2. Suspected PID: Pelvic exam completed, swabs obtained for G/C, trich/ying/ rosario. Vaginal culture obtained as well. Will also screen for HIV and syphillis. Spoke with Dr Huntley, who will see patient this evening after clinic. Will continue Zosyn and Flagyl for now, tailor antibiotics as needed. VTE prophylaxis: SCDs Dispo: 2-3 days pending improvement. <Brad Briones - Last Filed: 11/10/18 10:31> H&P History of Present Illness - General Admit Problem/Dx: Admission Diagnosis/Problem Admission Diagnosis/Problem Abdominal pain I have examined the patient independently of Tabby Griggs CNP. I have discussed the case with her. I agree with the assessment and plan of care for this patient as outlined by her. Please see orders. Exam - Vital Signs Vital Signs: Last Vital Signs Temp 36.4 C 11/10/18 08:00 Pulse 102 H 11/10/18 08:00 Resp 16 11/10/18 08:00 BP 121/61 11/10/18 08:00 Pulse Ox 97 11/10/18 08:00 - Patient Data Lab Results Last 24 hrs: Laboratory Results - last 24 hr 11/09/18 11/09/18 11/09/18 Range/Units 10:00 10:00 10:50 WBC (4.0-11.0) K/uL RBC (4.30-5.90) M/uL Hgb (12.0-16.0) g/dL Hct (36.0-46.0) % MCV (80.0-98.0) fL MCH (27.0-32.0) pg MCHC (31.0-37.0) g/dL RDW Std Deviation (28.0-62.0) fl RDW Coeff of Kina (11.0-15.0) % Plt Count (150-400) K/uL MPV (7.40-12.00) fL Add Manual Diff Neutrophils % (Manual) (48.0-80.0) % Band Neutrophils % % Lymphocytes % (Manual) (16.0-40.0) % Monocytes % (Manual) (0.0-15.0) % Nucleated RBC % /100WBC Absolute Seg Neuts (1.4-5.7) Band Neutrophils # Lymphocytes # (Manual) (0.6-2.4) Monocytes # (Manual) (0.0-0.8) Nucleated RBCs # K/uL Lactate 2.3 H (0.20-2.00) mmol/L Sodium 140 (136-145) mmol/L Potassium 4.0 (3.5-5.1) mmol/L Chloride 105 (98-107) mmol/L Carbon Dioxide 24.8 (21.0-32.0) mmol/L BUN 15 (7.0-18.0) mg/dL Creatinine 1.1 H (0.6-1.0) mg/dL Est Cr Clr Drug Dosing 68.69 mL/min Estimated GFR (MDRD) > 60.0 ml/min Glucose 141 H (74-106) mg/dL Calcium 9.4 (8.5-10.1) mg/dL Total Bilirubin 1.0 (0.2-1.0) mg/dL AST 12 L (15-37) IU/L ALT 21 (14-63) IU/L Alkaline Phosphatase 112 (46-116) U/L Total Protein 8.0 (6.4-8.2) g/dL Albumin 3.7 (3.4-5.0) g/dL Globulin 4.3 H (2.6-4.0) g/dL Albumin/Globulin Ratio 0.9 (0.9-1.6) HCG, Qual NEGATIVE (NEG) Urine Color Urine Appearance Urine pH (5.0-8.0) Ur Specific [place] (1.001-1.035) Urine Protein (NEGATIVE) mg/dL Urine Glucose (UA) (NEGATIVE) mg/dL Urine Ketones (NEGATIVE) mg/dL Urine Occult Blood (NEGATIVE) Urine Nitrite (NEGATIVE) Urine Bilirubin (NEGATIVE) Urine Urobilinogen (<2.0) EU/dL Ur Leukocyte Esterase (NEGATIVE) Urine RBC (0-2/HPF) Urine WBC (0-5/HPF) Ur Epithelial Cells (NONE-FEW) Urine Bacteria (NEGATIVE) Urine Opiates Screen (NEGATIVE) Ur Oxycodone Screen (NEGATIVE) Urine Methadone Screen (NEGATIVE) Ur Barbiturates Screen (NEGATIVE) Ur Phencyclidine Scrn (NEGATIVE) Ur Amphetamine Screen (NEGATIVE) U Methamphetamines Scrn (NEGATIVE) U Benzodiazepines Scrn (NEGATIVE) U Cocaine Metab Screen (NEGATIVE) U Marijuana (THC) Screen (NEGATIVE) Rosario species DNA (NEGATIVE) Gardnerella DNA Probe (NEGATIVE) HIV 1&2 Ag/Ab, 4th Gen INDEX Trichomonas DNA Probe (NEGATIVE) 11/09/18 11/09/18 11/09/18 Range/Units 11:57 11:57 14:00 WBC (4.0-11.0) K/uL RBC (4.30-5.90) M/uL Hgb (12.0-16.0) g/dL Hct (36.0-46.0) % MCV (80.0-98.0) fL MCH (27.0-32.0) pg MCHC (31.0-37.0) g/dL RDW Std Deviation (28.0-62.0) fl RDW Coeff of Kina (11.0-15.0) % Plt Count (150-400) K/uL MPV (7.40-12.00) fL Add Manual Diff Neutrophils % (Manual) (48.0-80.0) % Band Neutrophils % % Lymphocytes % (Manual) (16.0-40.0) % Monocytes % (Manual) (0.0-15.0) % Nucleated RBC % /100WBC Absolute Seg Neuts (1.4-5.7) Band Neutrophils # Lymphocytes # (Manual) (0.6-2.4) Monocytes # (Manual) (0.0-0.8) Nucleated RBCs # K/uL Lactate (0.20-2.00) mmol/L Sodium (136-145) mmol/L Potassium (3.5-5.1) mmol/L Chloride (98-107) mmol/L Carbon Dioxide (21.0-32.0) mmol/L BUN (7.0-18.0) mg/dL Creatinine (0.6-1.0) mg/dL Est Cr Clr Drug Dosing mL/min Estimated GFR (MDRD) ml/min Glucose (74-106) mg/dL Calcium (8.5-10.1) mg/dL Total Bilirubin (0.2-1.0) mg/dL AST (15-37) IU/L ALT (14-63) IU/L Alkaline Phosphatase (46-116) U/L Total Protein (6.4-8.2) g/dL Albumin (3.4-5.0) g/dL Globulin (2.6-4.0) g/dL Albumin/Globulin Ratio (0.9-1.6) HCG, Qual (NEG) Urine Color YELLOW Urine Appearance CLEAR Urine pH 6.0 (5.0-8.0) Ur Specific [place] 1.015 (1.001-1.035) Urine Protein NEGATIVE (NEGATIVE) mg/dL Urine Glucose (UA) NEGATIVE (NEGATIVE) mg/dL Urine Ketones NEGATIVE (NEGATIVE) mg/dL Urine Occult Blood MODERATE H (NEGATIVE) Urine Nitrite NEGATIVE (NEGATIVE) Urine Bilirubin NEGATIVE (NEGATIVE) Urine Urobilinogen 0.2 (<2.0) EU/dL Ur Leukocyte Esterase NEGATIVE (NEGATIVE) Urine RBC 0-1 (0-2/HPF) Urine WBC 0-1 (0-5/HPF) Ur Epithelial Cells RARE (NONE-FEW) Urine Bacteria RARE (NEGATIVE) Urine Opiates Screen NEGATIVE (NEGATIVE) Ur Oxycodone Screen NEGATIVE (NEGATIVE) Urine Methadone Screen NEGATIVE (NEGATIVE) Ur Barbiturates Screen NEGATIVE (NEGATIVE) Ur Phencyclidine Scrn NEGATIVE (NEGATIVE) Ur Amphetamine Screen NEGATIVE (NEGATIVE) U Methamphetamines Scrn NEGATIVE (NEGATIVE) U Benzodiazepines Scrn NEGATIVE (NEGATIVE) U Cocaine Metab Screen NEGATIVE (NEGATIVE) U Marijuana (THC) Screen NEGATIVE (NEGATIVE) Rosario species DNA NEGATIVE (NEGATIVE) Gardnerella DNA Probe POSITIVE H (NEGATIVE) HIV 1&2 Ag/Ab, 4th Gen INDEX Trichomonas DNA Probe NEGATIVE (NEGATIVE) 11/09/18 11/09/18 11/10/18 Range/Units 14:14 15:00 05:25 WBC 23.40 H (4.0-11.0) K/uL RBC 3.79 L (4.30-5.90) M/uL Hgb 11.3 L (12.0-16.0) g/dL Hct 34.7 L (36.0-46.0) % MCV 91.6 (80.0-98.0) fL MCH 29.8 (27.0-32.0) pg MCHC 32.6 (31.0-37.0) g/dL RDW Std Deviation 46.6 (28.0-62.0) fl RDW Coeff of Kina 14 (11.0-15.0) % Plt Count 245 (150-400) K/uL MPV 10.00 (7.40-12.00) fL Add Manual Diff YES Neutrophils % (Manual) 81 H (48.0-80.0) % Band Neutrophils % 12 % Lymphocytes % (Manual) 6 L (16.0-40.0) % Monocytes % (Manual) 1 (0.0-15.0) % Nucleated RBC % 0.0 /100WBC Absolute Seg Neuts 19.0 H (1.4-5.7) Band Neutrophils # 2.8 Lymphocytes # (Manual) 1.4 (0.6-2.4) Monocytes # (Manual) 0.2 (0.0-0.8) Nucleated RBCs # 0 K/uL Lactate 0.9 (0.20-2.00) mmol/L Sodium (136-145) mmol/L Potassium (3.5-5.1) mmol/L Chloride (98-107) mmol/L Carbon Dioxide (21.0-32.0) mmol/L BUN (7.0-18.0) mg/dL Creatinine (0.6-1.0) mg/dL Est Cr Clr Drug Dosing mL/min Estimated GFR (MDRD) ml/min Glucose (74-106) mg/dL Calcium (8.5-10.1) mg/dL Total Bilirubin (0.2-1.0) mg/dL AST (15-37) IU/L ALT (14-63) IU/L Alkaline Phosphatase (46-116) U/L Total Protein (6.4-8.2) g/dL Albumin (3.4-5.0) g/dL Globulin (2.6-4.0) g/dL Albumin/Globulin Ratio (0.9-1.6) HCG, Qual (NEG) Urine Color Urine Appearance Urine pH (5.0-8.0) Ur Specific [place] (1.001-1.035) Urine Protein (NEGATIVE) mg/dL Urine Glucose (UA) (NEGATIVE) mg/dL Urine Ketones (NEGATIVE) mg/dL Urine Occult Blood (NEGATIVE) Urine Nitrite (NEGATIVE) Urine Bilirubin (NEGATIVE) Urine Urobilinogen (<2.0) EU/dL Ur Leukocyte Esterase (NEGATIVE) Urine RBC (0-2/HPF) Urine WBC (0-5/HPF) Ur Epithelial Cells (NONE-FEW) Urine Bacteria (NEGATIVE) Urine Opiates Screen (NEGATIVE) Ur Oxycodone Screen (NEGATIVE) Urine Methadone Screen (NEGATIVE) Ur Barbiturates Screen (NEGATIVE) Ur Phencyclidine Scrn (NEGATIVE) Ur Amphetamine Screen (NEGATIVE) U Methamphetamines Scrn (NEGATIVE) U Benzodiazepines Scrn (NEGATIVE) U Cocaine Metab Screen (NEGATIVE) U Marijuana (THC) Screen (NEGATIVE) Rosario species DNA (NEGATIVE) Gardnerella DNA Probe (NEGATIVE) HIV 1&2 Ag/Ab, 4th Gen 0.2 INDEX Trichomonas DNA Probe (NEGATIVE) 11/10/18 Range/Units 05:25 WBC (4.0-11.0) K/uL RBC (4.30-5.90) M/uL Hgb (12.0-16.0) g/dL Hct (36.0-46.0) % MCV (80.0-98.0) fL MCH (27.0-32.0) pg MCHC (31.0-37.0) g/dL RDW Std Deviation (28.0-62.0) fl RDW Coeff of Kina (11.0-15.0) % Plt Count (150-400) K/uL MPV (7.40-12.00) fL Add Manual Diff Neutrophils % (Manual) (48.0-80.0) % Band Neutrophils % % Lymphocytes % (Manual) (16.0-40.0) % Monocytes % (Manual) (0.0-15.0) % Nucleated RBC % /100WBC Absolute Seg Neuts (1.4-5.7) Band Neutrophils # Lymphocytes # (Manual) (0.6-2.4) Monocytes # (Manual) (0.0-0.8) Nucleated RBCs # K/uL Lactate (0.20-2.00) mmol/L Sodium 141 (136-145) mmol/L Potassium 3.7 (3.5-5.1) mmol/L Chloride 109 H (98-107) mmol/L Carbon Dioxide 23.3 (21.0-32.0) mmol/L BUN 8 (7.0-18.0) mg/dL Creatinine 0.9 (0.6-1.0) mg/dL Est Cr Clr Drug Dosing 83.95 mL/min Estimated GFR (MDRD) > 60.0 ml/min Glucose 114 H (74-106) mg/dL Calcium 8.8 (8.5-10.1) mg/dL Total Bilirubin (0.2-1.0) mg/dL AST (15-37) IU/L ALT (14-63) IU/L Alkaline Phosphatase (46-116) U/L Total Protein (6.4-8.2) g/dL Albumin (3.4-5.0) g/dL Globulin (2.6-4.0) g/dL Albumin/Globulin Ratio (0.9-1.6) HCG, Qual (NEG) Urine Color Urine Appearance Urine pH (5.0-8.0) Ur Specific [place] (1.001-1.035) Urine Protein (NEGATIVE) mg/dL Urine Glucose (UA) (NEGATIVE) mg/dL Urine Ketones (NEGATIVE) mg/dL Urine Occult Blood (NEGATIVE) Urine Nitrite (NEGATIVE) Urine Bilirubin (NEGATIVE) Urine Urobilinogen (<2.0) EU/dL Ur Leukocyte Esterase (NEGATIVE) Urine RBC (0-2/HPF) Urine WBC (0-5/HPF) Ur Epithelial Cells (NONE-FEW) Urine Bacteria (NEGATIVE) Urine Opiates Screen (NEGATIVE) Ur Oxycodone Screen (NEGATIVE) Urine Methadone Screen (NEGATIVE) Ur Barbiturates Screen (NEGATIVE) Ur Phencyclidine Scrn (NEGATIVE) Ur Amphetamine Screen (NEGATIVE) U Methamphetamines Scrn (NEGATIVE) U Benzodiazepines Scrn (NEGATIVE) U Cocaine Metab Screen (NEGATIVE) U Marijuana (THC) Screen (NEGATIVE) Rosario species DNA (NEGATIVE) Gardnerella DNA Probe (NEGATIVE) HIV 1&2 Ag/Ab, 4th Gen INDEX Trichomonas DNA Probe (NEGATIVE) Result Diagrams: 11/10/18 05:25 11/10/18 05:25 Maximus Results Last 24 hrs: Microbiology 11/09/18 14:00 Gram Stain - Preliminary Vagina Orders Last 24hrs: Active Orders 24 hr Category Date Time Status Patient Status [ADT] Stat ADT 11/09/18 13:05 Active Intake and Output [RC] QSHIFT Care 11/09/18 14:10 Active May Shower [RC] ASDIRECTED Care 11/09/18 14:09 Active Notify Provider Consults [RC] ASDIRECTED Care 11/09/18 12:42 Active Oxygen Therapy [RC] PRN Care 11/09/18 14:10 Active Up ad [place] [RC] ASDIRECTED Care 11/09/18 14:09 Active VTE/DVT Education [RC] PER UNIT ROUTINE Care 11/09/18 14:10 Active Vital Signs [RC] Q4H Care 11/09/18 14:10 Active Consult to Physician [CONS] Stat Cons 11/09/18 12:41 Active Consult to Physician [CONS] Stat Cons 11/09/18 12:43 Active Regular Diet [DIET] Diet 11/09/18 Lunch Active Abdomen Pelvis w Cont [CT] Urgent Exams 11/10/18 08:22 Ordered BASIC METABOLIC PANEL,BMP [CHEM] AM Lab 11/11/18 05:11 Ordered BASIC METABOLIC PANEL,BMP [CHEM] AM Lab 11/12/18 05:11 Ordered CBC WITH AUTO DIFF [HEME] AM Lab 11/11/18 05:11 Ordered CBC WITH AUTO DIFF [HEME] AM Lab 11/12/18 05:11 Ordered CHLAMYDIA AND GONORRHEA BY TMA Routine Lab 11/09/18 14:00 Received CULTURE BLOOD [BC] Stat Lab 11/09/18 10:50 Received CULTURE BLOOD [BC] Stat Lab 11/09/18 11:06 Received CULTURE GENITAL [RM] Routine Lab 11/09/18 14:00 Results GRAM STAIN [RM] Routine Lab 11/09/18 14:00 Results RAPID PLASMA REAGIN, QUANT [REF] Routine Lab 11/09/18 10:53 Received Acetaminophen [Tylenol] Med 11/09/18 14:09 Active 650 mg PO Q4H PRN Acetaminophen/HYDROcodone [[place] 325-5 MG] Med 11/09/18 14:09 Active 1 - 2 tab PO Q4H PRN Docusate Sodium [Colace] Med 11/09/18 14:09 Active 100 mg PO BID PRN Morphine Med 11/10/18 09:20 Active 2 mg IVPUSH Q2H PRN Ondansetron [Zofran] Med 11/09/18 14:09 Active 4 mg IVPUSH Q4H PRN Piperacillin/Tazobactam [Piperacil-Tazobact] 3.375 gm Med 11/09/18 18:00 Active Sodium Chloride 0.9% [Normal Saline] 50 ml IV Q6H Sodium Chloride 0.9% [Normal Saline] 1,000 ml Med 11/09/18 14:15 Active IV ASDIRECTED metroNIDAZOLE/Normal Saline [Flagyl 500 MG in NS 100 ML Med 11/09/18 19:00 Active ] 500 mg Premix Bag 1 bag IV Q6H Blood Culture x2 Reflex Set [OM.PC] Stat Oth 11/09/18 10:42 Ordered Sequential Compression Device [OM.PC] Per Unit Routine Oth 11/09/18 14:10 Ordered Resuscitation Status Routine Resus Stat 11/09/18 14:09 Ordered Medication Orders Acetaminophen (Tylenol) 650 mg PO Q4H PRN PRN Reason: Pain (Mild 1-3)/fever Last Admin: 11/10/18 00:23 Dose: 650 mg Admin: 11/09/18 14:28 Dose: 650 mg Hydrocodone Bitart/Acetaminophen ([place] 325-5 Mg) 1 - 2 tab PO Q4H PRN PRN Reason: Pain (moderate 4-6) Last Admin: 11/10/18 05:17 Dose: 1 tab Docusate Sodium (Colace) 100 mg PO BID PRN PRN Reason: Constipation Metronidazole 500 mg/ Premix 100 mls @ 100 mls/hr IV Q6H [facility] Last Admin: 11/10/18 06:04 Dose: 100 mls/hr Infusion: 11/10/18 02:37 Dose: 100 mls/hr Admin: 11/10/18 01:37 Dose: 100 mls/hr Infusion: 11/09/18 18:59 Dose: 100 mls/hr Admin: 11/09/18 17:59 Dose: 100 mls/hr Piperacillin Sod/Tazobactam (Sod 3.375 gm/ Sodium Chloride) 50 mls @ 100 mls/ hr IV Q6H [facility] Last Admin: 11/10/18 05:11 Dose: 100 mls/hr Infusion: 11/10/18 00:43 Dose: 100 mls/hr Admin: 11/10/18 00:13 Dose: 100 mls/hr Infusion: 11/09/18 17:40 Dose: 100 mls/hr Admin: 11/09/18 17:10 Dose: 100 mls/hr Sodium Chloride (Normal Saline) 1,000 mls @ 125 mls/hr IV ASDIRECTED [facility] Last Admin: 11/10/18 00:14 Dose: 125 mls/hr Infusion: 11/09/18 22:28 Dose: 125 mls/hr Admin: 11/09/18 14:28 Dose: 125 mls/hr Morphine Sulfate (Morphine) 2 mg IVPUSH Q2H PRN PRN Reason: Pain Ondansetron HCl (Zofran) 4 mg IVPUSH Q4H PRN PRN Reason: Nausea Last Admin: 11/10/18 10:08 Dose: 4 mg
[2018-11-09] MEDS: Sodium Chloride 0.9% 1,000 ML IV SCH (14:28)
[2018-11-09] MEDS: Acetaminophen 325 MG Tab PO PRN (14:28)
[2018-11-09] MEDS: Piperacillin/Tazobactam 3.375 GM in Sodium Chloride 0.9% 50 ML IV SCH (17:10)
[2018-11-09] MEDS: metroNIDAZOLE/Normal Saline 500 MG in Premix Bag 1 BAG IV SCH (17:59)
--- NOTE | 2018-11-09 20:55 | CONS ---
DATE OF CONSULTATION: 11/09/2018 DATE OF : 1995 PRIMARY CARE PHYSICIAN: None PCP CHIEF COMPLAINT: Right lower quadrant pain. HISTORY OF PRESENT ILLNESS: This is a 23-year-old female, she presented to the emergency room with a complaint of right lower quadrant pain. This has been worsening over the past several days. The pain became severe today. She did call our clinic yesterday and had an ultrasound performed, which showed a persistent right ovarian cyst slightly increased in size from prior ultrasound in February and December of 2017, currently measuring 4.4 cm. This is consistent with a recurrent cystadenoma as she did have a previous 40 cm cystadenoma and right tube removed in 2013. There was no free fluid in the pelvis. Her IUD is appropriately positioned. She notes that the pain wraps around her back and her entire abdomen is sore. She has had chills at home, but does not think that she has had a fever. She reports regular bowel movements, some nausea today. She states that when she takes a deep breath, the pain in her abdomen becomes worse, but she denies any chest pain or otherwise shortness of breath. She denies any abnormal vaginal discharge or malodor. She had unprotected intercourse on Tuesday. She does have an IUD in place. She denies any history of sexually transmitted infections. PAST MEDICAL HISTORY: Significant for migraine headaches. PAST SURGICAL HISTORY: Laparotomy, right salpingectomy, partial right oophorectomy in 08/13/2014. Pathology shows serous cystadenoma. MEDICATION: Mirena IUD. FAMILY HISTORY: Significant for maternal grandmother with diabetes. Paternal grandfather with colon cancer. Other family members are healthy. SOCIAL HISTORY: She is single, sexually active. She denies use of tobacco, alcohol, or street drugs. PAST OB HISTORY: She is G1, P1, with a vaginal delivery in 2016. ALLERGIES: She has no known drug allergies. REVIEW OF SYSTEMS: Negative for headache or visual changes. Negative for rash. Negative for change in bowel habits. Positive for abdominal pain as noted in history of present illness. She denies any breast changes. Denies urologic changes. Denies cardiologic issues. Denies respiratory symptoms. Denies musculoskeletal symptoms. Denies ENT. Denies any neurologic changes. PHYSICAL EXAMINATION: VITAL SIGNS: Show temperature 97.7, blood pressure is 115/47, pulse is 110, respiratory rate of 22, O2 saturation 98% on room air. GENERAL: She is alert and oriented. NECK: Supple without lymphadenopathy or thyromegaly. LUNGS: Clear bilaterally. CV: Regular rate without murmur. ABDOMEN: Distended with rebound and guarding with tenderness in the right lower quadrant. No CVA tenderness except as it exacerbates her abdominal pain. EXTREMITIES: Show trace edema. VAGINAL: The IUD string is palpable. There is no abnormal discharge. There is tenderness to palpation of the uterus and adnexa, but this is difficult to differentiate from her generalized abdominal pain. LABORATORY STUDIES: White blood cell count of 25.84, hemoglobin 13.5, hematocrit 91.1, platelet count of 304. Manual differential shows 68% neutrophils, 16% bands, 14% lymphocytes, 1% monocytes, 1%eosinophils. Lactate initially was 2.3; after hydration, it is 0.9. Sodium 140, potassium 4.0, chloride 105, CO2 of 24.8, BUN 15, creatinine 1.1, glucose is 141, calcium 9.4, bilirubin 1.0, AST 12, ALT 21, alkaline phosphatase 112, albumin 3.7, globulin 4.3. HCG is negative. Urinalysis shows moderate occult blood. Urine drug screen is negative. Affirm test is positive for bacterial vaginosis. HIV negative. Trichomonas negative. Yeast negative. Gonorrhea and chlamydia are pending. IMAGING STUDIES: CT abdomen and pelvis without contrast shows a soft tissue prominence in the region of the right ovary, which is consistent with the findings on ultrasound yesterday of persistent right ovarian cyst. The cyst was also documented on ultrasound in December of 2017. There is mild stranding within the mesentery, there is nonobstructing left nephrolithiasis. On the noncontrast CT, note is made of a normal-appearing appendix. ASSESSMENT AND PLAN: Abdominal pain, right lower quadrant. She does have a right ovarian cyst, which has been noted and fairly stable since December of 2017. This is not the cause of her abdominal pain and peritoneal signs. She has no dilation of her left fallopian tubes, and she does not have a right fallopian tube no abnormal discharge, and therefore while pelvic inflammatory disease could be a consideration it is unlikely All the appropriate laboratory studies have been obtained to assess for PID. There is no tubal ovarian abscess and not a strong examination finding for pelvic inflammatory disease, which would be covered with her current antibiotics, which is Flagyl and Zosyn. If symptoms do not improve in a reasonable time frame, consideration could be given to repeating her CT with oral and IV contrast to further delineate the source of infection. She should follow up in the clinic after her hospitalization for consultation after her acute infectious process is resolved regarding the right ovarian cyst, which is most consistent with cystadenoma, recurrent on the right ovary. VIPUL / JERMAINE /[id number] MTDD
[2018-11-10] MEDS: Piperacillin/Tazobactam 3.375 GM in Sodium Chloride 0.9% 50 ML IV SCH ×4 (00:13→17:11)
[2018-11-10] MEDS: Sodium Chloride 0.9% 1,000 ML IV SCH ×2 (00:14→12:06)
[2018-11-10] MEDS: Acetaminophen 325 MG Tab PO PRN (00:23)
[2018-11-10] MEDS: metroNIDAZOLE/Normal Saline 500 MG in Premix Bag 1 BAG IV SCH ×4 (01:37→19:17)
[2018-11-10] MEDS: Acetaminophen/HYDROcodone 325-5 MG Tab PO PRN ×2 (05:17→19:18)
[2018-11-10 05:56] LABS: CHLORIDE,CL 109 mmol/L (98-107); SODIUM,NA 141 mmol/L (136-145)
--- NOTE | 2018-11-10 08:24 | PCM.PN ---
<Tabby Griggs M - Last Filed: 11/10/18 09:16> - General Info Date of Service: 11/10/18 Admission Dx/Problem (Free Text): Admission Diagnosis/Problem Admission Diagnosis/Problem Abdominal pain Subjective Update: Pain continues this morning, no significant improvement. No chest pain or SOB. Having some nausea still with x1 diarrhea this morning. Which she felt helped relieve some pain. Functional Status: Reports: Tolerating Diet, Ambulating, Urinating. Denies: Pain Controlled - Review of Systems General: Reports: Malaise. Denies: Fever, Weakness HEENT: Reports: No Symptoms. Denies: Headaches, Sore Throat, Visual Changes Pulmonary: Reports: No Symptoms. Denies: Shortness of Breath, Cough, Sputum Cardiovascular: Denies: Chest Pain Gastrointestinal: Reports: Abdominal Pain, Diarrhea, Flatus, Nausea. Denies: Vomiting Genitourinary: Reports: No Symptoms. Denies: Dysuria, Frequency, Burning, Flank Pain Musculoskeletal: Reports: No Symptoms. Denies: Neck Pain Neurological: Reports: No Symptoms Psychiatric: Reports: No Symptoms - Patient Data Vitals - Most Recent: Last Vital Signs Temp 97 F 11/10/18 04:00 Pulse 100 11/10/18 04:00 Resp 14 11/10/18 04:00 BP 96/52 L 11/10/18 04:00 Pulse Ox 96 11/10/18 04:00 Weight - Most Recent: 71.668 kg I&O - Last 24 Hours: Intake & Output 11/09/18 11/10/18 11/10/18 22:59 06:59 14:59 Intake Total 150 1751 Balance 150 1751 Lab Results Last 24 Hours: Laboratory Results - last 24 hr 11/09/18 11/09/18 11/09/18 Range/Units 10:00 10:00 10:00 WBC 25.84 H (4.0-11.0) K/uL RBC 4.40 (4.30-5.90) M/uL Hgb 13.5 (12.0-16.0) g/dL Hct 40.1 (36.0-46.0) % MCV 91.1 (80.0-98.0) fL MCH 30.7 (27.0-32.0) pg MCHC 33.7 (31.0-37.0) g/dL RDW Std Deviation 45.8 (28.0-62.0) fl RDW Coeff of Kina 14 (11.0-15.0) % Plt Count 304 (150-400) K/uL MPV 10.30 (7.40-12.00) fL Add Manual Diff YES Neutrophils % (Manual) 68 (48.0-80.0) % Band Neutrophils % 16 % Lymphocytes % (Manual) 14 L (16.0-40.0) % Monocytes % (Manual) 1 (0.0-15.0) % Eosinophils % (Manual) 1 (0.0-7.0) % Nucleated RBC % 0.0 /100WBC Absolute Seg Neuts 17.6 H (1.4-5.7) Band Neutrophils # 4.1 Lymphocytes # (Manual) 3.6 H (0.6-2.4) Monocytes # (Manual) 0.3 (0.0-0.8) Eosinophils # (Manual) 0.3 (0.0-0.7) Nucleated RBCs # 0 K/uL Lactate (0.20-2.00) mmol/L Sodium 140 (136-145) mmol/L Potassium 4.0 (3.5-5.1) mmol/L Chloride 105 (98-107) mmol/L Carbon Dioxide 24.8 (21.0-32.0) mmol/L BUN 15 (7.0-18.0) mg/dL Creatinine 1.1 H (0.6-1.0) mg/dL Est Cr Clr Drug Dosing 68.69 mL/min Estimated GFR (MDRD) > 60.0 ml/min Glucose 141 H (74-106) mg/dL Calcium 9.4 (8.5-10.1) mg/dL Total Bilirubin 1.0 (0.2-1.0) mg/dL AST 12 L (15-37) IU/L ALT 21 (14-63) IU/L Alkaline Phosphatase 112 (46-116) U/L Total Protein 8.0 (6.4-8.2) g/dL Albumin 3.7 (3.4-5.0) g/dL Globulin 4.3 H (2.6-4.0) g/dL Albumin/Globulin Ratio 0.9 (0.9-1.6) HCG, Qual NEGATIVE (NEG) Urine Color Urine Appearance Urine pH (5.0-8.0) Ur Specific [place] (1.001-1.035) Urine Protein (NEGATIVE) mg/dL Urine Glucose (UA) (NEGATIVE) mg/dL Urine Ketones (NEGATIVE) mg/dL Urine Occult Blood (NEGATIVE) Urine Nitrite (NEGATIVE) Urine Bilirubin (NEGATIVE) Urine Urobilinogen (<2.0) EU/dL Ur Leukocyte Esterase (NEGATIVE) Urine RBC (0-2/HPF) Urine WBC (0-5/HPF) Ur Epithelial Cells (NONE-FEW) Urine Bacteria (NEGATIVE) Urine Opiates Screen (NEGATIVE) Ur Oxycodone Screen (NEGATIVE) Urine Methadone Screen (NEGATIVE) Ur Barbiturates Screen (NEGATIVE) Ur Phencyclidine Scrn (NEGATIVE) Ur Amphetamine Screen (NEGATIVE) U Methamphetamines Scrn (NEGATIVE) U Benzodiazepines Scrn (NEGATIVE) U Cocaine Metab Screen (NEGATIVE) U Marijuana (THC) Screen (NEGATIVE) Toshia species DNA (NEGATIVE) Gardnerella DNA Probe (NEGATIVE) HIV 1&2 Ag/Ab, 4th Gen INDEX Trichomonas DNA Probe (NEGATIVE) 11/09/18 11/09/18 11/09/18 Range/Units 10:50 11:57 11:57 WBC (4.0-11.0) K/uL RBC (4.30-5.90) M/uL Hgb (12.0-16.0) g/dL Hct (36.0-46.0) % MCV (80.0-98.0) fL MCH (27.0-32.0) pg MCHC (31.0-37.0) g/dL RDW Std Deviation (28.0-62.0) fl RDW Coeff of Kina (11.0-15.0) % Plt Count (150-400) K/uL MPV (7.40-12.00) fL Add Manual Diff Neutrophils % (Manual) (48.0-80.0) % Band Neutrophils % % Lymphocytes % (Manual) (16.0-40.0) % Monocytes % (Manual) (0.0-15.0) % Eosinophils % (Manual) (0.0-7.0) % Nucleated RBC % /100WBC Absolute Seg Neuts (1.4-5.7) Band Neutrophils # Lymphocytes # (Manual) (0.6-2.4) Monocytes # (Manual) (0.0-0.8) Eosinophils # (Manual) (0.0-0.7) Nucleated RBCs # K/uL Lactate 2.3 H (0.20-2.00) mmol/L Sodium (136-145) mmol/L Potassium (3.5-5.1) mmol/L Chloride (98-107) mmol/L Carbon Dioxide (21.0-32.0) mmol/L BUN (7.0-18.0) mg/dL Creatinine (0.6-1.0) mg/dL Est Cr Clr Drug Dosing mL/min Estimated GFR (MDRD) ml/min Glucose (74-106) mg/dL Calcium (8.5-10.1) mg/dL Total Bilirubin (0.2-1.0) mg/dL AST (15-37) IU/L ALT (14-63) IU/L Alkaline Phosphatase (46-116) U/L Total Protein (6.4-8.2) g/dL Albumin (3.4-5.0) g/dL Globulin (2.6-4.0) g/dL Albumin/Globulin Ratio (0.9-1.6) HCG, Qual (NEG) Urine Color YELLOW Urine Appearance CLEAR Urine pH 6.0 (5.0-8.0) Ur Specific [place] 1.015 (1.001-1.035) Urine Protein NEGATIVE (NEGATIVE) mg/dL Urine Glucose (UA) NEGATIVE (NEGATIVE) mg/dL Urine Ketones NEGATIVE (NEGATIVE) mg/dL Urine Occult Blood MODERATE H (NEGATIVE) Urine Nitrite NEGATIVE (NEGATIVE) Urine Bilirubin NEGATIVE (NEGATIVE) Urine Urobilinogen 0.2 (<2.0) EU/dL Ur Leukocyte Esterase NEGATIVE (NEGATIVE) Urine RBC 0-1 (0-2/HPF) Urine WBC 0-1 (0-5/HPF) Ur Epithelial Cells RARE (NONE-FEW) Urine Bacteria RARE (NEGATIVE) Urine Opiates Screen NEGATIVE (NEGATIVE) Ur Oxycodone Screen NEGATIVE (NEGATIVE) Urine Methadone Screen NEGATIVE (NEGATIVE) Ur Barbiturates Screen NEGATIVE (NEGATIVE) Ur Phencyclidine Scrn NEGATIVE (NEGATIVE) Ur Amphetamine Screen NEGATIVE (NEGATIVE) U Methamphetamines Scrn NEGATIVE (NEGATIVE) U Benzodiazepines Scrn NEGATIVE (NEGATIVE) U Cocaine Metab Screen NEGATIVE (NEGATIVE) U Marijuana (THC) Screen NEGATIVE (NEGATIVE) Toshia species DNA (NEGATIVE) Gardnerella DNA Probe (NEGATIVE) HIV 1&2 Ag/Ab, 4th Gen INDEX Trichomonas DNA Probe (NEGATIVE) 11/09/18 11/09/18 11/09/18 Range/Units 14:00 14:14 15:00 WBC (4.0-11.0) K/uL RBC (4.30-5.90) M/uL Hgb (12.0-16.0) g/dL Hct (36.0-46.0) % MCV (80.0-98.0) fL MCH (27.0-32.0) pg MCHC (31.0-37.0) g/dL RDW Std Deviation (28.0-62.0) fl RDW Coeff of Kina (11.0-15.0) % Plt Count (150-400) K/uL MPV (7.40-12.00) fL Add Manual Diff Neutrophils % (Manual) (48.0-80.0) % Band Neutrophils % % Lymphocytes % (Manual) (16.0-40.0) % Monocytes % (Manual) (0.0-15.0) % Eosinophils % (Manual) (0.0-7.0) % Nucleated RBC % /100WBC Absolute Seg Neuts (1.4-5.7) Band Neutrophils # Lymphocytes # (Manual) (0.6-2.4) Monocytes # (Manual) (0.0-0.8) Eosinophils # (Manual) (0.0-0.7) Nucleated RBCs # K/uL Lactate 0.9 (0.20-2.00) mmol/L Sodium (136-145) mmol/L Potassium (3.5-5.1) mmol/L Chloride (98-107) mmol/L Carbon Dioxide (21.0-32.0) mmol/L BUN (7.0-18.0) mg/dL Creatinine (0.6-1.0) mg/dL Est Cr Clr Drug Dosing mL/min Estimated GFR (MDRD) ml/min Glucose (74-106) mg/dL Calcium (8.5-10.1) mg/dL Total Bilirubin (0.2-1.0) mg/dL AST (15-37) IU/L ALT (14-63) IU/L Alkaline Phosphatase (46-116) U/L Total Protein (6.4-8.2) g/dL Albumin (3.4-5.0) g/dL Globulin (2.6-4.0) g/dL Albumin/Globulin Ratio (0.9-1.6) HCG, Qual (NEG) Urine Color Urine Appearance Urine pH (5.0-8.0) Ur Specific [place] (1.001-1.035) Urine Protein (NEGATIVE) mg/dL Urine Glucose (UA) (NEGATIVE) mg/dL Urine Ketones (NEGATIVE) mg/dL Urine Occult Blood (NEGATIVE) Urine Nitrite (NEGATIVE) Urine Bilirubin (NEGATIVE) Urine Urobilinogen (<2.0) EU/dL Ur Leukocyte Esterase (NEGATIVE) Urine RBC (0-2/HPF) Urine WBC (0-5/HPF) Ur Epithelial Cells (NONE-FEW) Urine Bacteria (NEGATIVE) Urine Opiates Screen (NEGATIVE) Ur Oxycodone Screen (NEGATIVE) Urine Methadone Screen (NEGATIVE) Ur Barbiturates Screen (NEGATIVE) Ur Phencyclidine Scrn (NEGATIVE) Ur Amphetamine Screen (NEGATIVE) U Methamphetamines Scrn (NEGATIVE) U Benzodiazepines Scrn (NEGATIVE) U Cocaine Metab Screen (NEGATIVE) U Marijuana (THC) Screen (NEGATIVE) Toshia species DNA NEGATIVE (NEGATIVE) Gardnerella DNA Probe POSITIVE H (NEGATIVE) HIV 1&2 Ag/Ab, 4th Gen 0.2 INDEX Trichomonas DNA Probe NEGATIVE (NEGATIVE) 11/10/18 11/10/18 Range/Units 05:25 05:25 WBC 23.40 H (4.0-11.0) K/uL RBC 3.79 L (4.30-5.90) M/uL Hgb 11.3 L (12.0-16.0) g/dL Hct 34.7 L (36.0-46.0) % MCV 91.6 (80.0-98.0) fL MCH 29.8 (27.0-32.0) pg MCHC 32.6 (31.0-37.0) g/dL RDW Std Deviation 46.6 (28.0-62.0) fl RDW Coeff of Kina 14 (11.0-15.0) % Plt Count 245 (150-400) K/uL MPV 10.00 (7.40-12.00) fL Add Manual Diff YES Neutrophils % (Manual) 81 H (48.0-80.0) % Band Neutrophils % 12 % Lymphocytes % (Manual) 6 L (16.0-40.0) % Monocytes % (Manual) 1 (0.0-15.0) % Eosinophils % (Manual) (0.0-7.0) % Nucleated RBC % 0.0 /100WBC Absolute Seg Neuts 19.0 H (1.4-5.7) Band Neutrophils # 2.8 Lymphocytes # (Manual) 1.4 (0.6-2.4) Monocytes # (Manual) 0.2 (0.0-0.8) Eosinophils # (Manual) (0.0-0.7) Nucleated RBCs # 0 K/uL Lactate (0.20-2.00) mmol/L Sodium 141 (136-145) mmol/L Potassium 3.7 (3.5-5.1) mmol/L Chloride 109 H (98-107) mmol/L Carbon Dioxide 23.3 (21.0-32.0) mmol/L BUN 8 (7.0-18.0) mg/dL Creatinine 0.9 (0.6-1.0) mg/dL Est Cr Clr Drug Dosing 83.95 mL/min Estimated GFR (MDRD) > 60.0 ml/min Glucose 114 H (74-106) mg/dL Calcium 8.8 (8.5-10.1) mg/dL Total Bilirubin (0.2-1.0) mg/dL AST (15-37) IU/L ALT (14-63) IU/L Alkaline Phosphatase (46-116) U/L Total Protein (6.4-8.2) g/dL Albumin (3.4-5.0) g/dL Globulin (2.6-4.0) g/dL Albumin/Globulin Ratio (0.9-1.6) HCG, Qual (NEG) Urine Color Urine Appearance Urine pH (5.0-8.0) Ur Specific [place] (1.001-1.035) Urine Protein (NEGATIVE) mg/dL Urine Glucose (UA) (NEGATIVE) mg/dL Urine Ketones (NEGATIVE) mg/dL Urine Occult Blood (NEGATIVE) Urine Nitrite (NEGATIVE) Urine Bilirubin (NEGATIVE) Urine Urobilinogen (<2.0) EU/dL Ur Leukocyte Esterase (NEGATIVE) Urine RBC (0-2/HPF) Urine WBC (0-5/HPF) Ur Epithelial Cells (NONE-FEW) Urine Bacteria (NEGATIVE) Urine Opiates Screen (NEGATIVE) Ur Oxycodone Screen (NEGATIVE) Urine Methadone Screen (NEGATIVE) Ur Barbiturates Screen (NEGATIVE) Ur Phencyclidine Scrn (NEGATIVE) Ur Amphetamine Screen (NEGATIVE) U Methamphetamines Scrn (NEGATIVE) U Benzodiazepines Scrn (NEGATIVE) U Cocaine Metab Screen (NEGATIVE) U Marijuana (THC) Screen (NEGATIVE) Toshia species DNA (NEGATIVE) Gardnerella DNA Probe (NEGATIVE) HIV 1&2 Ag/Ab, 4th Gen INDEX Trichomonas DNA Probe (NEGATIVE) Maximus Results Last 24 Hours: Microbiology 11/09/18 14:00 Gram Stain - Preliminary Vagina Med Orders - Current: Current Medications Acetaminophen (Tylenol) 650 mg PO Q4H PRN PRN Reason: Pain (Mild 1-3)/fever Last Admin: 11/10/18 00:23 Dose: 650 mg Hydrocodone Bitart/Acetaminophen ([place] 325-5 Mg) 1 - 2 tab PO Q4H PRN PRN Reason: Pain (moderate 4-6) Last Admin: 11/10/18 05:17 Dose: 1 tab Docusate Sodium (Colace) 100 mg PO BID PRN PRN Reason: Constipation Metronidazole 500 mg/ Premix 100 mls @ 100 mls/hr IV Q6H [facility] Last Admin: 11/10/18 06:04 Dose: 100 mls/hr Piperacillin Sod/Tazobactam (Sod 3.375 gm/ Sodium Chloride) 50 mls @ 100 mls/ hr IV Q6H [facility] Last Admin: 11/10/18 05:11 Dose: 100 mls/hr Sodium Chloride (Normal Saline) 1,000 mls @ 125 mls/hr IV ASDIRECTED [facility] Last Admin: 11/10/18 00:14 Dose: 125 mls/hr Ondansetron HCl (Zofran) 4 mg IVPUSH Q4H PRN PRN Reason: Nausea Discontinued Medications Hydromorphone HCl (Dilaudid) 1 mg IVPUSH ONETIME ONE Stop: 11/09/18 09:46 Last Admin: 11/09/18 12:14 Dose: 1 mg Sodium Chloride (Normal Saline) 1,000 mls @ 999 mls/hr IV STAT ONE Stop: 11/09/18 10:45 Last Admin: 11/09/18 10:04 Dose: 999 mls/hr Sodium Chloride (Normal Saline) 1,000 mls @ 999 mls/hr IV .Bolus ONE Stop: 11/09/18 12:02 Last Admin: 11/09/18 11:44 Dose: 999 mls/hr Piperacillin Sod/Tazobactam (Sod 3.375 gm/ Sodium Chloride) 50 mls @ 100 mls/ hr IV ONETIME ONE Stop: 11/09/18 12:36 Last Admin: 11/09/18 12:15 Dose: 100 mls/hr Metronidazole 500 mg/ Premix 100 mls @ 100 mls/hr IV ONETIME ONE Stop: 11/09/18 13:07 Last Admin: 11/09/18 13:31 Dose: 100 mls/hr Ondansetron HCl (Zofran) 4 mg IVPUSH ONETIME ONE Stop: 11/09/18 09:46 Last Admin: 11/09/18 10:04 Dose: 4 mg - Exam General: Alert, Oriented, Cooperative, No Acute Distress Neck: Supple Lungs: Clear to Auscultation, Normal Respiratory Effort Cardiovascular: Regular Rate, Regular Rhythm GI/Abdominal Exam: Normal Bowel Sounds, Soft, Tender (Localized to RLQ but has tenderness diffusely, no peritoneal signs) Back Exam: Normal Inspection, Full Range of Motion Extremities: Normal Inspection, Normal Range of Motion, Non-Tender, No Pedal Edema, Normal Capillary Refill Neurological: No New Focal Deficit Psy/Mental Status: Alert, Normal Affect, Normal Mood - Problem List & Annotations (1) Sepsis SNOMED Code(s): 38474267 Code(s): A41.9 - SEPSIS, UNSPECIFIED ORGANISM Status: Acute Current Visit : Yes (2) Abdominal pain SNOMED Code(s): 35096508 Code(s): R10.9 - UNSPECIFIED ABDOMINAL PAIN Status: Acute Priority: High Current Visit: No (3) PID (acute pelvic inflammatory disease) SNOMED Code(s): 445991549 Code(s): N73.0 - ACUTE PARAMETRITIS AND PELVIC CELLULITIS Status: Suspected Current Visit: Yes (4) IUD (intrauterine device) in place SNOMED Code(s): 238196838, 792304686 Code(s): Z97.5 - PRESENCE OF (INTRAUTERINE) CONTRACEPTIVE DEVICE Status: Chronic Current Visit: Yes - Problem List Review Problem List Initiated/Reviewed/Updated: Yes - My Orders Last 24 Hours: My Active Orders 11/09/18 10:53 RAPID PLASMA REAGIN, QUANT [REF] Routine 11/09/18 13:05 Patient Status [ADT] Stat 11/09/18 14:00 CHLAMYDIA AND GONORRHEA BY TMA Routine CULTURE GENITAL [RM] Routine GRAM STAIN [RM] Routine 11/09/18 14:09 May Shower [RC] ASDIRECTED Up ad [place] [RC] ASDIRECTED Acetaminophen [Tylenol] 650 mg PO Q4H PRN Acetaminophen/HYDROcodone [[place] 325-5 MG] 1 - 2 tab PO Q4H PRN Docusate Sodium [Colace] 100 mg PO BID PRN Ondansetron [Zofran] 4 mg IVPUSH Q4H PRN Resuscitation Status Routine 11/09/18 14:10 Intake and Output [RC] QSHIFT Oxygen Therapy [RC] PRN VTE/DVT Education [RC] PER UNIT ROUTINE Vital Signs [RC] Q4H Sequential Compression Device [OM.PC] Per Unit Routine 11/09/18 14:15 Sodium Chloride 0.9% [Normal Saline] 1,000 ml IV ASDIRECTED 11/09/18 18:00 Piperacillin/Tazobactam [Piperacil-Tazobact] 3.375 gm Sodium Chloride 0.9% [ Normal Saline] 50 ml IV Q6H 11/09/18 19:00 metroNIDAZOLE/Normal Saline [Flagyl 500 MG in NS 100 ML] 500 mg Premix Bag 1 bag IV Q6H 11/09/18 Lunch Regular Diet [DIET] 11/10/18 08:22 Abdomen Pelvis w Cont [CT] Urgent 11/11/18 05:11 BASIC METABOLIC PANEL,BMP [CHEM] AM CBC WITH AUTO DIFF [HEME] AM 11/12/18 05:11 BASIC METABOLIC PANEL,BMP [CHEM] AM CBC WITH AUTO DIFF [HEME] AM - Plan Plan:: This 23 year old female admitted with sepsis secondary to suspected PID 1. Sepsis: Well hydrated overnight, BPs remain stable. BC pending. Lactic acid normalized. Will continue IVFs for now and monitor. 2. Abdominal pain: + for Gardernella, continue Flagyl. G/C pending. Spoke with Dr Huntley, this morning, PID low likelyhood. Recommended repeated CT with contrast , ordered this morning to further evaluate. Continue broad spectrum abx with Zosyn and Flagyl. I appreciated Dr Huntley and Dr Plummer assistance with this case. VTE prophylaxis: SCDs Dispo: 2-3 days pending improvement. <Brad Briones M - Last Filed: 11/10/18 10:31> - General Info Admission Dx/Problem (Free Text): I have examined the patient independently of Tabby Griggs CNP. I have discussed the case with her. I agree with the assessment and plan of care for this patient as outlined by her. Please see orders. Consider PID, testing pending. - Patient Data Vitals - Most Recent: Last Vital Signs Temp 36.4 C 11/10/18 08:00 Pulse 102 H 11/10/18 08:00 Resp 16 11/10/18 08:00 BP 121/61 11/10/18 08:00 Pulse Ox 97 11/10/18 08:00 I&O - Last 24 Hours: Intake & Output 11/09/18 11/10/18 11/10/18 22:59 06:59 14:59 Intake Total 150 1751 Balance 150 1751 Lab Results Last 24 Hours: Laboratory Results - last 24 hr 11/09/18 11/09/18 11/09/18 Range/Units 10:00 10:00 10:50 WBC (4.0-11.0) K/uL RBC (4.30-5.90) M/uL Hgb (12.0-16.0) g/dL Hct (36.0-46.0) % MCV (80.0-98.0) fL MCH (27.0-32.0) pg MCHC (31.0-37.0) g/dL RDW Std Deviation (28.0-62.0) fl RDW Coeff of Kina (11.0-15.0) % Plt Count (150-400) K/uL MPV (7.40-12.00) fL Add Manual Diff Neutrophils % (Manual) (48.0-80.0) % Band Neutrophils % % Lymphocytes % (Manual) (16.0-40.0) % Monocytes % (Manual) (0.0-15.0) % Nucleated RBC % /100WBC Absolute Seg Neuts (1.4-5.7) Band Neutrophils # Lymphocytes # (Manual) (0.6-2.4) Monocytes # (Manual) (0.0-0.8) Nucleated RBCs # K/uL Lactate 2.3 H (0.20-2.00) mmol/L Sodium 140 (136-145) mmol/L Potassium 4.0 (3.5-5.1) mmol/L Chloride 105 (98-107) mmol/L Carbon Dioxide 24.8 (21.0-32.0) mmol/L BUN 15 (7.0-18.0) mg/dL Creatinine 1.1 H (0.6-1.0) mg/dL Est Cr Clr Drug Dosing 68.69 mL/min Estimated GFR (MDRD) > 60.0 ml/min Glucose 141 H (74-106) mg/dL Calcium 9.4 (8.5-10.1) mg/dL Total Bilirubin 1.0 (0.2-1.0) mg/dL AST 12 L (15-37) IU/L ALT 21 (14-63) IU/L Alkaline Phosphatase 112 (46-116) U/L Total Protein 8.0 (6.4-8.2) g/dL Albumin 3.7 (3.4-5.0) g/dL Globulin 4.3 H (2.6-4.0) g/dL Albumin/Globulin Ratio 0.9 (0.9-1.6) HCG, Qual NEGATIVE (NEG) Urine Color Urine Appearance Urine pH (5.0-8.0) Ur Specific [place] (1.001-1.035) Urine Protein (NEGATIVE) mg/dL Urine Glucose (UA) (NEGATIVE) mg/dL Urine Ketones (NEGATIVE) mg/dL Urine Occult Blood (NEGATIVE) Urine Nitrite (NEGATIVE) Urine Bilirubin (NEGATIVE) Urine Urobilinogen (<2.0) EU/dL Ur Leukocyte Esterase (NEGATIVE) Urine RBC (0-2/HPF) Urine WBC (0-5/HPF) Ur Epithelial Cells (NONE-FEW) Urine Bacteria (NEGATIVE) Urine Opiates Screen (NEGATIVE) Ur Oxycodone Screen (NEGATIVE) Urine Methadone Screen (NEGATIVE) Ur Barbiturates Screen (NEGATIVE) Ur Phencyclidine Scrn (NEGATIVE) Ur Amphetamine Screen (NEGATIVE) U Methamphetamines Scrn (NEGATIVE) U Benzodiazepines Scrn (NEGATIVE) U Cocaine Metab Screen (NEGATIVE) U Marijuana (THC) Screen (NEGATIVE) Toshia species DNA (NEGATIVE) Gardnerella DNA Probe (NEGATIVE) HIV 1&2 Ag/Ab, 4th Gen INDEX Trichomonas DNA Probe (NEGATIVE) 11/09/18 11/09/18 11/09/18 Range/Units 11:57 11:57 14:00 WBC (4.0-11.0) K/uL RBC (4.30-5.90) M/uL Hgb (12.0-16.0) g/dL Hct (36.0-46.0) % MCV (80.0-98.0) fL MCH (27.0-32.0) pg MCHC (31.0-37.0) g/dL RDW Std Deviation (28.0-62.0) fl RDW Coeff of Kina (11.0-15.0) % Plt Count (150-400) K/uL MPV (7.40-12.00) fL Add Manual Diff Neutrophils % (Manual) (48.0-80.0) % Band Neutrophils % % Lymphocytes % (Manual) (16.0-40.0) % Monocytes % (Manual) (0.0-15.0) % Nucleated RBC % /100WBC Absolute Seg Neuts (1.4-5.7) Band Neutrophils # Lymphocytes # (Manual) (0.6-2.4) Monocytes # (Manual) (0.0-0.8) Nucleated RBCs # K/uL Lactate (0.20-2.00) mmol/L Sodium (136-145) mmol/L Potassium (3.5-5.1) mmol/L Chloride (98-107) mmol/L Carbon Dioxide (21.0-32.0) mmol/L BUN (7.0-18.0) mg/dL Creatinine (0.6-1.0) mg/dL Est Cr Clr Drug Dosing mL/min Estimated GFR (MDRD) ml/min Glucose (74-106) mg/dL Calcium (8.5-10.1) mg/dL Total Bilirubin (0.2-1.0) mg/dL AST (15-37) IU/L ALT (14-63) IU/L Alkaline Phosphatase (46-116) U/L Total Protein (6.4-8.2) g/dL Albumin (3.4-5.0) g/dL Globulin (2.6-4.0) g/dL Albumin/Globulin Ratio (0.9-1.6) HCG, Qual (NEG) Urine Color YELLOW Urine Appearance CLEAR Urine pH 6.0 (5.0-8.0) Ur Specific [place] 1.015 (1.001-1.035) Urine Protein NEGATIVE (NEGATIVE) mg/dL Urine Glucose (UA) NEGATIVE (NEGATIVE) mg/dL Urine Ketones NEGATIVE (NEGATIVE) mg/dL Urine Occult Blood MODERATE H (NEGATIVE) Urine Nitrite NEGATIVE (NEGATIVE) Urine Bilirubin NEGATIVE (NEGATIVE) Urine Urobilinogen 0.2 (<2.0) EU/dL Ur Leukocyte Esterase NEGATIVE (NEGATIVE) Urine RBC 0-1 (0-2/HPF) Urine WBC 0-1 (0-5/HPF) Ur Epithelial Cells RARE (NONE-FEW) Urine Bacteria RARE (NEGATIVE) Urine Opiates Screen NEGATIVE (NEGATIVE) Ur Oxycodone Screen NEGATIVE (NEGATIVE) Urine Methadone Screen NEGATIVE (NEGATIVE) Ur Barbiturates Screen NEGATIVE (NEGATIVE) Ur Phencyclidine Scrn NEGATIVE (NEGATIVE) Ur Amphetamine Screen NEGATIVE (NEGATIVE) U Methamphetamines Scrn NEGATIVE (NEGATIVE) U Benzodiazepines Scrn NEGATIVE (NEGATIVE) U Cocaine Metab Screen NEGATIVE (NEGATIVE) U Marijuana (THC) Screen NEGATIVE (NEGATIVE) Toshia species DNA NEGATIVE (NEGATIVE) Gardnerella DNA Probe POSITIVE H (NEGATIVE) HIV 1&2 Ag/Ab, 4th Gen INDEX Trichomonas DNA Probe NEGATIVE (NEGATIVE) 11/09/18 11/09/18 11/10/18 Range/Units 14:14 15:00 05:25 WBC 23.40 H (4.0-11.0) K/uL RBC 3.79 L (4.30-5.90) M/uL Hgb 11.3 L (12.0-16.0) g/dL Hct 34.7 L (36.0-46.0) % MCV 91.6 (80.0-98.0) fL MCH 29.8 (27.0-32.0) pg MCHC 32.6 (31.0-37.0) g/dL RDW Std Deviation 46.6 (28.0-62.0) fl RDW Coeff of Kina 14 (11.0-15.0) % Plt Count 245 (150-400) K/uL MPV 10.00 (7.40-12.00) fL Add Manual Diff YES Neutrophils % (Manual) 81 H (48.0-80.0) % Band Neutrophils % 12 % Lymphocytes % (Manual) 6 L (16.0-40.0) % Monocytes % (Manual) 1 (0.0-15.0) % Nucleated RBC % 0.0 /100WBC Absolute Seg Neuts 19.0 H (1.4-5.7) Band Neutrophils # 2.8 Lymphocytes # (Manual) 1.4 (0.6-2.4) Monocytes # (Manual) 0.2 (0.0-0.8) Nucleated RBCs # 0 K/uL Lactate 0.9 (0.20-2.00) mmol/L Sodium (136-145) mmol/L Potassium (3.5-5.1) mmol/L Chloride (98-107) mmol/L Carbon Dioxide (21.0-32.0) mmol/L BUN (7.0-18.0) mg/dL Creatinine (0.6-1.0) mg/dL Est Cr Clr Drug Dosing mL/min Estimated GFR (MDRD) ml/min Glucose (74-106) mg/dL Calcium (8.5-10.1) mg/dL Total Bilirubin (0.2-1.0) mg/dL AST (15-37) IU/L ALT (14-63) IU/L Alkaline Phosphatase (46-116) U/L Total Protein (6.4-8.2) g/dL Albumin (3.4-5.0) g/dL Globulin (2.6-4.0) g/dL Albumin/Globulin Ratio (0.9-1.6) HCG, Qual (NEG) Urine Color Urine Appearance Urine pH (5.0-8.0) Ur Specific [place] (1.001-1.035) Urine Protein (NEGATIVE) mg/dL Urine Glucose (UA) (NEGATIVE) mg/dL Urine Ketones (NEGATIVE) mg/dL Urine Occult Blood (NEGATIVE) Urine Nitrite (NEGATIVE) Urine Bilirubin (NEGATIVE) Urine Urobilinogen (<2.0) EU/dL Ur Leukocyte Esterase (NEGATIVE) Urine RBC (0-2/HPF) Urine WBC (0-5/HPF) Ur Epithelial Cells (NONE-FEW) Urine Bacteria (NEGATIVE) Urine Opiates Screen (NEGATIVE) Ur Oxycodone Screen (NEGATIVE) Urine Methadone Screen (NEGATIVE) Ur Barbiturates Screen (NEGATIVE) Ur Phencyclidine Scrn (NEGATIVE) Ur Amphetamine Screen (NEGATIVE) U Methamphetamines Scrn (NEGATIVE) U Benzodiazepines Scrn (NEGATIVE) U Cocaine Metab Screen (NEGATIVE) U Marijuana (THC) Screen (NEGATIVE) Toshia species DNA (NEGATIVE) Gardnerella DNA Probe (NEGATIVE) HIV 1&2 Ag/Ab, 4th Gen 0.2 INDEX Trichomonas DNA Probe (NEGATIVE) 11/10/18 Range/Units 05:25 WBC (4.0-11.0) K/uL RBC (4.30-5.90) M/uL Hgb (12.0-16.0) g/dL Hct (36.0-46.0) % MCV (80.0-98.0) fL MCH (27.0-32.0) pg MCHC (31.0-37.0) g/dL RDW Std Deviation (28.0-62.0) fl RDW Coeff of Kina (11.0-15.0) % Plt Count (150-400) K/uL MPV (7.40-12.00) fL Add Manual Diff Neutrophils % (Manual) (48.0-80.0) % Band Neutrophils % % Lymphocytes % (Manual) (16.0-40.0) % Monocytes % (Manual) (0.0-15.0) % Nucleated RBC % /100WBC Absolute Seg Neuts (1.4-5.7) Band Neutrophils # Lymphocytes # (Manual) (0.6-2.4) Monocytes # (Manual) (0.0-0.8) Nucleated RBCs # K/uL Lactate (0.20-2.00) mmol/L Sodium 141 (136-145) mmol/L Potassium 3.7 (3.5-5.1) mmol/L Chloride 109 H (98-107) mmol/L Carbon Dioxide 23.3 (21.0-32.0) mmol/L BUN 8 (7.0-18.0) mg/dL Creatinine 0.9 (0.6-1.0) mg/dL Est Cr Clr Drug Dosing 83.95 mL/min Estimated GFR (MDRD) > 60.0 ml/min Glucose 114 H (74-106) mg/dL Calcium 8.8 (8.5-10.1) mg/dL Total Bilirubin (0.2-1.0) mg/dL AST (15-37) IU/L ALT (14-63) IU/L Alkaline Phosphatase (46-116) U/L Total Protein (6.4-8.2) g/dL Albumin (3.4-5.0) g/dL Globulin (2.6-4.0) g/dL Albumin/Globulin Ratio (0.9-1.6) HCG, Qual (NEG) Urine Color Urine Appearance Urine pH (5.0-8.0) Ur Specific [place] (1.001-1.035) Urine Protein (NEGATIVE) mg/dL Urine Glucose (UA) (NEGATIVE) mg/dL Urine Ketones (NEGATIVE) mg/dL Urine Occult Blood (NEGATIVE) Urine Nitrite (NEGATIVE) Urine Bilirubin (NEGATIVE) Urine Urobilinogen (<2.0) EU/dL Ur Leukocyte Esterase (NEGATIVE) Urine RBC (0-2/HPF) Urine WBC (0-5/HPF) Ur Epithelial Cells (NONE-FEW) Urine Bacteria (NEGATIVE) Urine Opiates Screen (NEGATIVE) Ur Oxycodone Screen (NEGATIVE) Urine Methadone Screen (NEGATIVE) Ur Barbiturates Screen (NEGATIVE) Ur Phencyclidine Scrn (NEGATIVE) Ur Amphetamine Screen (NEGATIVE) U Methamphetamines Scrn (NEGATIVE) U Benzodiazepines Scrn (NEGATIVE) U Cocaine Metab Screen (NEGATIVE) U Marijuana (THC) Screen (NEGATIVE) Toshia species DNA (NEGATIVE) Gardnerella DNA Probe (NEGATIVE) HIV 1&2 Ag/Ab, 4th Gen INDEX Trichomonas DNA Probe (NEGATIVE) Maximus Results Last 24 Hours: Microbiology 11/09/18 14:00 Gram Stain - Preliminary Vagina Med Orders - Current: Current Medications Acetaminophen (Tylenol) 650 mg PO Q4H PRN PRN Reason: Pain (Mild 1-3)/fever Last Admin: 11/10/18 00:23 Dose: 650 mg Hydrocodone Bitart/Acetaminophen ([place] 325-5 Mg) 1 - 2 tab PO Q4H PRN PRN Reason: Pain (moderate 4-6) Last Admin: 11/10/18 05:17 Dose: 1 tab Docusate Sodium (Colace) 100 mg PO BID PRN PRN Reason: Constipation Metronidazole 500 mg/ Premix 100 mls @ 100 mls/hr IV Q6H [facility] Last Admin: 11/10/18 06:04 Dose: 100 mls/hr Piperacillin Sod/Tazobactam (Sod 3.375 gm/ Sodium Chloride) 50 mls @ 100 mls/ hr IV Q6H [facility] Last Admin: 11/10/18 05:11 Dose: 100 mls/hr Sodium Chloride (Normal Saline) 1,000 mls @ 125 mls/hr IV ASDIRECTED [facility] Last Admin: 11/10/18 00:14 Dose: 125 mls/hr Morphine Sulfate (Morphine) 2 mg IVPUSH Q2H PRN PRN Reason: Pain Ondansetron HCl (Zofran) 4 mg IVPUSH Q4H PRN PRN Reason: Nausea Last Admin: 11/10/18 10:08 Dose: 4 mg Discontinued Medications Hydromorphone HCl (Dilaudid) 1 mg IVPUSH ONETIME ONE Stop: 11/09/18 09:46 Last Admin: 11/09/18 12:14 Dose: 1 mg Sodium Chloride (Normal Saline) 1,000 mls @ 999 mls/hr IV STAT ONE Stop: 11/09/18 10:45 Last Admin: 11/09/18 10:04 Dose: 999 mls/hr Sodium Chloride (Normal Saline) 1,000 mls @ 999 mls/hr IV .Bolus ONE Stop: 11/09/18 12:02 Last Admin: 11/09/18 11:44 Dose: 999 mls/hr Piperacillin Sod/Tazobactam (Sod 3.375 gm/ Sodium Chloride) 50 mls @ 100 mls/ hr IV ONETIME ONE Stop: 11/09/18 12:36 Last Admin: 11/09/18 12:15 Dose: 100 mls/hr Metronidazole 500 mg/ Premix 100 mls @ 100 mls/hr IV ONETIME ONE Stop: 11/09/18 13:07 Last Admin: 11/09/18 13:31 Dose: 100 mls/hr Ondansetron HCl (Zofran) 4 mg IVPUSH ONETIME ONE Stop: 11/09/18 09:46 Last Admin: 11/09/18 10:04 Dose: 4 mg
--- NOTE | 2018-11-10 08:42 | PCM.PN ---
- General Info Date of Service: 11/10/18 Functional Status: Reports: Ambulating. Denies: Pain Controlled - Review of Systems General: Reports: No Symptoms HEENT: Reports: No Symptoms Pulmonary: Reports: No Symptoms Cardiovascular: Reports: No Symptoms Gastrointestinal: Reports: Abdominal Pain, Decreased Appetite, Diarrhea, Nausea Genitourinary: Reports: No Symptoms Musculoskeletal: Reports: No Symptoms Skin: Reports: No Symptoms Neurological: Reports: No Symptoms Psychiatric: Reports: No Symptoms - Patient Data Vitals - Most Recent: Last Vital Signs Temp 36.1 C 11/10/18 04:00 Pulse 100 11/10/18 04:00 Resp 14 11/10/18 04:00 BP 96/52 L 11/10/18 04:00 Pulse Ox 96 11/10/18 04:00 Weight - Most Recent: 71.668 kg I&O - Last 24 Hours: Intake & Output 11/09/18 11/10/18 11/10/18 22:59 06:59 14:59 Intake Total 150 1751 Balance 150 1751 Lab Results Last 24 Hours: Laboratory Results - last 24 hr 11/09/18 11/09/18 11/09/18 Range/Units 10:00 10:00 10:00 WBC 25.84 H (4.0-11.0) K/uL RBC 4.40 (4.30-5.90) M/uL Hgb 13.5 (12.0-16.0) g/dL Hct 40.1 (36.0-46.0) % MCV 91.1 (80.0-98.0) fL MCH 30.7 (27.0-32.0) pg MCHC 33.7 (31.0-37.0) g/dL RDW Std Deviation 45.8 (28.0-62.0) fl RDW Coeff of Kina 14 (11.0-15.0) % Plt Count 304 (150-400) K/uL MPV 10.30 (7.40-12.00) fL Add Manual Diff YES Neutrophils % (Manual) 68 (48.0-80.0) % Band Neutrophils % 16 % Lymphocytes % (Manual) 14 L (16.0-40.0) % Monocytes % (Manual) 1 (0.0-15.0) % Eosinophils % (Manual) 1 (0.0-7.0) % Nucleated RBC % 0.0 /100WBC Absolute Seg Neuts 17.6 H (1.4-5.7) Band Neutrophils # 4.1 Lymphocytes # (Manual) 3.6 H (0.6-2.4) Monocytes # (Manual) 0.3 (0.0-0.8) Eosinophils # (Manual) 0.3 (0.0-0.7) Nucleated RBCs # 0 K/uL Lactate (0.20-2.00) mmol/L Sodium 140 (136-145) mmol/L Potassium 4.0 (3.5-5.1) mmol/L Chloride 105 (98-107) mmol/L Carbon Dioxide 24.8 (21.0-32.0) mmol/L BUN 15 (7.0-18.0) mg/dL Creatinine 1.1 H (0.6-1.0) mg/dL Est Cr Clr Drug Dosing 68.69 mL/min Estimated GFR (MDRD) > 60.0 ml/min Glucose 141 H (74-106) mg/dL Calcium 9.4 (8.5-10.1) mg/dL Total Bilirubin 1.0 (0.2-1.0) mg/dL AST 12 L (15-37) IU/L ALT 21 (14-63) IU/L Alkaline Phosphatase 112 (46-116) U/L Total Protein 8.0 (6.4-8.2) g/dL Albumin 3.7 (3.4-5.0) g/dL Globulin 4.3 H (2.6-4.0) g/dL Albumin/Globulin Ratio 0.9 (0.9-1.6) HCG, Qual NEGATIVE (NEG) Urine Color Urine Appearance Urine pH (5.0-8.0) Ur Specific [place] (1.001-1.035) Urine Protein (NEGATIVE) mg/dL Urine Glucose (UA) (NEGATIVE) mg/dL Urine Ketones (NEGATIVE) mg/dL Urine Occult Blood (NEGATIVE) Urine Nitrite (NEGATIVE) Urine Bilirubin (NEGATIVE) Urine Urobilinogen (<2.0) EU/dL Ur Leukocyte Esterase (NEGATIVE) Urine RBC (0-2/HPF) Urine WBC (0-5/HPF) Ur Epithelial Cells (NONE-FEW) Urine Bacteria (NEGATIVE) Urine Opiates Screen (NEGATIVE) Ur Oxycodone Screen (NEGATIVE) Urine Methadone Screen (NEGATIVE) Ur Barbiturates Screen (NEGATIVE) Ur Phencyclidine Scrn (NEGATIVE) Ur Amphetamine Screen (NEGATIVE) U Methamphetamines Scrn (NEGATIVE) U Benzodiazepines Scrn (NEGATIVE) U Cocaine Metab Screen (NEGATIVE) U Marijuana (THC) Screen (NEGATIVE) Toshia species DNA (NEGATIVE) Gardnerella DNA Probe (NEGATIVE) HIV 1&2 Ag/Ab, 4th Gen INDEX Trichomonas DNA Probe (NEGATIVE) 11/09/18 11/09/18 11/09/18 Range/Units 10:50 11:57 11:57 WBC (4.0-11.0) K/uL RBC (4.30-5.90) M/uL Hgb (12.0-16.0) g/dL Hct (36.0-46.0) % MCV (80.0-98.0) fL MCH (27.0-32.0) pg MCHC (31.0-37.0) g/dL RDW Std Deviation (28.0-62.0) fl RDW Coeff of Kina (11.0-15.0) % Plt Count (150-400) K/uL MPV (7.40-12.00) fL Add Manual Diff Neutrophils % (Manual) (48.0-80.0) % Band Neutrophils % % Lymphocytes % (Manual) (16.0-40.0) % Monocytes % (Manual) (0.0-15.0) % Eosinophils % (Manual) (0.0-7.0) % Nucleated RBC % /100WBC Absolute Seg Neuts (1.4-5.7) Band Neutrophils # Lymphocytes # (Manual) (0.6-2.4) Monocytes # (Manual) (0.0-0.8) Eosinophils # (Manual) (0.0-0.7) Nucleated RBCs # K/uL Lactate 2.3 H (0.20-2.00) mmol/L Sodium (136-145) mmol/L Potassium (3.5-5.1) mmol/L Chloride (98-107) mmol/L Carbon Dioxide (21.0-32.0) mmol/L BUN (7.0-18.0) mg/dL Creatinine (0.6-1.0) mg/dL Est Cr Clr Drug Dosing mL/min Estimated GFR (MDRD) ml/min Glucose (74-106) mg/dL Calcium (8.5-10.1) mg/dL Total Bilirubin (0.2-1.0) mg/dL AST (15-37) IU/L ALT (14-63) IU/L Alkaline Phosphatase (46-116) U/L Total Protein (6.4-8.2) g/dL Albumin (3.4-5.0) g/dL Globulin (2.6-4.0) g/dL Albumin/Globulin Ratio (0.9-1.6) HCG, Qual (NEG) Urine Color YELLOW Urine Appearance CLEAR Urine pH 6.0 (5.0-8.0) Ur Specific [place] 1.015 (1.001-1.035) Urine Protein NEGATIVE (NEGATIVE) mg/dL Urine Glucose (UA) NEGATIVE (NEGATIVE) mg/dL Urine Ketones NEGATIVE (NEGATIVE) mg/dL Urine Occult Blood MODERATE H (NEGATIVE) Urine Nitrite NEGATIVE (NEGATIVE) Urine Bilirubin NEGATIVE (NEGATIVE) Urine Urobilinogen 0.2 (<2.0) EU/dL Ur Leukocyte Esterase NEGATIVE (NEGATIVE) Urine RBC 0-1 (0-2/HPF) Urine WBC 0-1 (0-5/HPF) Ur Epithelial Cells RARE (NONE-FEW) Urine Bacteria RARE (NEGATIVE) Urine Opiates Screen NEGATIVE (NEGATIVE) Ur Oxycodone Screen NEGATIVE (NEGATIVE) Urine Methadone Screen NEGATIVE (NEGATIVE) Ur Barbiturates Screen NEGATIVE (NEGATIVE) Ur Phencyclidine Scrn NEGATIVE (NEGATIVE) Ur Amphetamine Screen NEGATIVE (NEGATIVE) U Methamphetamines Scrn NEGATIVE (NEGATIVE) U Benzodiazepines Scrn NEGATIVE (NEGATIVE) U Cocaine Metab Screen NEGATIVE (NEGATIVE) U Marijuana (THC) Screen NEGATIVE (NEGATIVE) Toshia species DNA (NEGATIVE) Gardnerella DNA Probe (NEGATIVE) HIV 1&2 Ag/Ab, 4th Gen INDEX Trichomonas DNA Probe (NEGATIVE) 11/09/18 11/09/18 11/09/18 Range/Units 14:00 14:14 15:00 WBC (4.0-11.0) K/uL RBC (4.30-5.90) M/uL Hgb (12.0-16.0) g/dL Hct (36.0-46.0) % MCV (80.0-98.0) fL MCH (27.0-32.0) pg MCHC (31.0-37.0) g/dL RDW Std Deviation (28.0-62.0) fl RDW Coeff of Kina (11.0-15.0) % Plt Count (150-400) K/uL MPV (7.40-12.00) fL Add Manual Diff Neutrophils % (Manual) (48.0-80.0) % Band Neutrophils % % Lymphocytes % (Manual) (16.0-40.0) % Monocytes % (Manual) (0.0-15.0) % Eosinophils % (Manual) (0.0-7.0) % Nucleated RBC % /100WBC Absolute Seg Neuts (1.4-5.7) Band Neutrophils # Lymphocytes # (Manual) (0.6-2.4) Monocytes # (Manual) (0.0-0.8) Eosinophils # (Manual) (0.0-0.7) Nucleated RBCs # K/uL Lactate 0.9 (0.20-2.00) mmol/L Sodium (136-145) mmol/L Potassium (3.5-5.1) mmol/L Chloride (98-107) mmol/L Carbon Dioxide (21.0-32.0) mmol/L BUN (7.0-18.0) mg/dL Creatinine (0.6-1.0) mg/dL Est Cr Clr Drug Dosing mL/min Estimated GFR (MDRD) ml/min Glucose (74-106) mg/dL Calcium (8.5-10.1) mg/dL Total Bilirubin (0.2-1.0) mg/dL AST (15-37) IU/L ALT (14-63) IU/L Alkaline Phosphatase (46-116) U/L Total Protein (6.4-8.2) g/dL Albumin (3.4-5.0) g/dL Globulin (2.6-4.0) g/dL Albumin/Globulin Ratio (0.9-1.6) HCG, Qual (NEG) Urine Color Urine Appearance Urine pH (5.0-8.0) Ur Specific [place] (1.001-1.035) Urine Protein (NEGATIVE) mg/dL Urine Glucose (UA) (NEGATIVE) mg/dL Urine Ketones (NEGATIVE) mg/dL Urine Occult Blood (NEGATIVE) Urine Nitrite (NEGATIVE) Urine Bilirubin (NEGATIVE) Urine Urobilinogen (<2.0) EU/dL Ur Leukocyte Esterase (NEGATIVE) Urine RBC (0-2/HPF) Urine WBC (0-5/HPF) Ur Epithelial Cells (NONE-FEW) Urine Bacteria (NEGATIVE) Urine Opiates Screen (NEGATIVE) Ur Oxycodone Screen (NEGATIVE) Urine Methadone Screen (NEGATIVE) Ur Barbiturates Screen (NEGATIVE) Ur Phencyclidine Scrn (NEGATIVE) Ur Amphetamine Screen (NEGATIVE) U Methamphetamines Scrn (NEGATIVE) U Benzodiazepines Scrn (NEGATIVE) U Cocaine Metab Screen (NEGATIVE) U Marijuana (THC) Screen (NEGATIVE) Toshia species DNA NEGATIVE (NEGATIVE) Gardnerella DNA Probe POSITIVE H (NEGATIVE) HIV 1&2 Ag/Ab, 4th Gen 0.2 INDEX Trichomonas DNA Probe NEGATIVE (NEGATIVE) 11/10/18 11/10/18 Range/Units 05:25 05:25 WBC 23.40 H (4.0-11.0) K/uL RBC 3.79 L (4.30-5.90) M/uL Hgb 11.3 L (12.0-16.0) g/dL Hct 34.7 L (36.0-46.0) % MCV 91.6 (80.0-98.0) fL MCH 29.8 (27.0-32.0) pg MCHC 32.6 (31.0-37.0) g/dL RDW Std Deviation 46.6 (28.0-62.0) fl RDW Coeff of Kina 14 (11.0-15.0) % Plt Count 245 (150-400) K/uL MPV 10.00 (7.40-12.00) fL Add Manual Diff YES Neutrophils % (Manual) 81 H (48.0-80.0) % Band Neutrophils % 12 % Lymphocytes % (Manual) 6 L (16.0-40.0) % Monocytes % (Manual) 1 (0.0-15.0) % Eosinophils % (Manual) (0.0-7.0) % Nucleated RBC % 0.0 /100WBC Absolute Seg Neuts 19.0 H (1.4-5.7) Band Neutrophils # 2.8 Lymphocytes # (Manual) 1.4 (0.6-2.4) Monocytes # (Manual) 0.2 (0.0-0.8) Eosinophils # (Manual) (0.0-0.7) Nucleated RBCs # 0 K/uL Lactate (0.20-2.00) mmol/L Sodium 141 (136-145) mmol/L Potassium 3.7 (3.5-5.1) mmol/L Chloride 109 H (98-107) mmol/L Carbon Dioxide 23.3 (21.0-32.0) mmol/L BUN 8 (7.0-18.0) mg/dL Creatinine 0.9 (0.6-1.0) mg/dL Est Cr Clr Drug Dosing 83.95 mL/min Estimated GFR (MDRD) > 60.0 ml/min Glucose 114 H (74-106) mg/dL Calcium 8.8 (8.5-10.1) mg/dL Total Bilirubin (0.2-1.0) mg/dL AST (15-37) IU/L ALT (14-63) IU/L Alkaline Phosphatase (46-116) U/L Total Protein (6.4-8.2) g/dL Albumin (3.4-5.0) g/dL Globulin (2.6-4.0) g/dL Albumin/Globulin Ratio (0.9-1.6) HCG, Qual (NEG) Urine Color Urine Appearance Urine pH (5.0-8.0) Ur Specific [place] (1.001-1.035) Urine Protein (NEGATIVE) mg/dL Urine Glucose (UA) (NEGATIVE) mg/dL Urine Ketones (NEGATIVE) mg/dL Urine Occult Blood (NEGATIVE) Urine Nitrite (NEGATIVE) Urine Bilirubin (NEGATIVE) Urine Urobilinogen (<2.0) EU/dL Ur Leukocyte Esterase (NEGATIVE) Urine RBC (0-2/HPF) Urine WBC (0-5/HPF) Ur Epithelial Cells (NONE-FEW) Urine Bacteria (NEGATIVE) Urine Opiates Screen (NEGATIVE) Ur Oxycodone Screen (NEGATIVE) Urine Methadone Screen (NEGATIVE) Ur Barbiturates Screen (NEGATIVE) Ur Phencyclidine Scrn (NEGATIVE) Ur Amphetamine Screen (NEGATIVE) U Methamphetamines Scrn (NEGATIVE) U Benzodiazepines Scrn (NEGATIVE) U Cocaine Metab Screen (NEGATIVE) U Marijuana (THC) Screen (NEGATIVE) Toshia species DNA (NEGATIVE) Gardnerella DNA Probe (NEGATIVE) HIV 1&2 Ag/Ab, 4th Gen INDEX Trichomonas DNA Probe (NEGATIVE) Maximus Results Last 24 Hours: Microbiology 11/09/18 14:00 Gram Stain - Preliminary Vagina Med Orders - Current: Current Medications Acetaminophen (Tylenol) 650 mg PO Q4H PRN PRN Reason: Pain (Mild 1-3)/fever Last Admin: 11/10/18 00:23 Dose: 650 mg Hydrocodone Bitart/Acetaminophen ([place] 325-5 Mg) 1 - 2 tab PO Q4H PRN PRN Reason: Pain (moderate 4-6) Last Admin: 11/10/18 05:17 Dose: 1 tab Docusate Sodium (Colace) 100 mg PO BID PRN PRN Reason: Constipation Metronidazole 500 mg/ Premix 100 mls @ 100 mls/hr IV Q6H [facility] Last Admin: 11/10/18 06:04 Dose: 100 mls/hr Piperacillin Sod/Tazobactam (Sod 3.375 gm/ Sodium Chloride) 50 mls @ 100 mls/ hr IV Q6H [facility] Last Admin: 11/10/18 05:11 Dose: 100 mls/hr Sodium Chloride (Normal Saline) 1,000 mls @ 125 mls/hr IV ASDIRECTED [facility] Last Admin: 11/10/18 00:14 Dose: 125 mls/hr Ondansetron HCl (Zofran) 4 mg IVPUSH Q4H PRN PRN Reason: Nausea Discontinued Medications Hydromorphone HCl (Dilaudid) 1 mg IVPUSH ONETIME ONE Stop: 11/09/18 09:46 Last Admin: 11/09/18 12:14 Dose: 1 mg Sodium Chloride (Normal Saline) 1,000 mls @ 999 mls/hr IV STAT ONE Stop: 11/09/18 10:45 Last Admin: 11/09/18 10:04 Dose: 999 mls/hr Sodium Chloride (Normal Saline) 1,000 mls @ 999 mls/hr IV .Bolus ONE Stop: 11/09/18 12:02 Last Admin: 11/09/18 11:44 Dose: 999 mls/hr Piperacillin Sod/Tazobactam (Sod 3.375 gm/ Sodium Chloride) 50 mls @ 100 mls/ hr IV ONETIME ONE Stop: 11/09/18 12:36 Last Admin: 11/09/18 12:15 Dose: 100 mls/hr Metronidazole 500 mg/ Premix 100 mls @ 100 mls/hr IV ONETIME ONE Stop: 11/09/18 13:07 Last Admin: 11/09/18 13:31 Dose: 100 mls/hr Ondansetron HCl (Zofran) 4 mg IVPUSH ONETIME ONE Stop: 11/09/18 09:46 Last Admin: 11/09/18 10:04 Dose: 4 mg - Exam General: Alert, Oriented Lungs: Clear to Auscultation, Normal Respiratory Effort Cardiovascular: Regular Rate, Regular Rhythm GI/Abdominal Exam: Guarding, Rebound (present but slightly less than last night) . No: Normal Bowel Sounds (minimal) Back Exam: Normal Inspection, Full Range of Motion Extremities: Normal Inspection, Non-Tender, No Pedal Edema - Problem List & Annotations (1) Abdominal pain SNOMED Code(s): 25451167 Code(s): R10.9 - UNSPECIFIED ABDOMINAL PAIN Status: Acute Current Visit: Yes (2) Sepsis SNOMED Code(s): 48018373 Code(s): A41.9 - SEPSIS, UNSPECIFIED ORGANISM Status: Acute Current Visit : Yes - Problem List Review Problem List Initiated/Reviewed/Updated: Yes - Assessment Assessment:: I reviewed with patient and with Michelle that the cyst on her right ovary has been present since December of 2017 and has only increased slightly in size, additionally 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 She is not significantly improved after over 18 hours of antibiotics and therefore this picture is not consistent with PID. I will sign off at this time, Dr. Ward will be available this weekend if reconsultation is needed. Please have patient follow up with Dr. Knutson in 2 weeks. - Plan Plan:: Follow up in clinic in 2 weeks, if Chlamydia is positive discharge with doxycycline 100 mg BID for 14 days.
[2018-11-10] MEDS ORDERED: Morphine 2 MG/ML Syringe IVPUSH PRN (09:20)
--- NOTE | 2018-11-10 14:35 | CT ---
CT of the abdomen and pelvis with contrast. HISTORY: Pain TECHNIQUE: Axial CT images were obtained of the abdomen and pelvis following administration of 100 mL of Isovue-370 in the left antecubital fossa without complication. Coronal and sagittal reconstructions obtained. FINDINGS: Atelectasis is noted within the lung bases. The liver, spleen, adrenal glands, and pancreas appear normal. Nonpathologically enlarged retroperitoneal lymph nodes are noted. The gallbladder is normal. No abdominal ascites. The kidneys enhance and function symmetrically without evidence of obstructive uropathy. Nonobstructing stone within the midpole of the left kidney. The large and small bowel are normal in caliber without evidence of obstruction. No focal pericolonic inflammation. Mild generalized mesenteric stranding again noted. The appendix is normal. Urinary bladder is normal. There is an IUD within the uterus. There is a 4.6 cm right adnexal cyst. There is a mildly organized fluid collection within the rectouterine space measuring 7.5 x 3.5 cm. No suspicious osseous abnormalities identified. IMPRESSION: 1. Mildly organized fluid collection within the pelvis measuring roughly 7.5 x 3.5 cm. This may represent a developing abscess. 2. There is a 4.6 cm otherwise simple appearing right adnexal cyst. 3. Stable mild generalized mesenteric stranding.
[2018-11-10] MEDS ORDERED: Iopamidol 755 MG/ML 500 ML Multipack Bottle IVPUSH ONE (15:15)
--- NOTE | 2018-11-10 16:17 | PCM.DCSUM1 ---
<Tabby Griggs M - Last Filed: 11/10/18 16:11> Discharge Summary - Hospital Course Brief History: This 23 year old female, with pmh of ovarian cysts presented to the ED today with worsening R sided abdominal pain. She reports 3 days ago she started having R sided abdominal pain and felt it was a cyst. She called her OB/ [employer] and had an ultrasound yesterday, but did not see a provider. She reports this morning the pain got so intense she could not bear it any longer. It started wrapping around her back and now her entire abdomen was sore. She denies fevers but reports chills at home with some nausea. No diarrhea. She denies chest pain or SOB. No head or URI symptoms. No dysuria or frequency and no vaginal discharged. She just finished her period a few days ago. She has recently had intercourse on Tuesday and it was unprotected, denies history of STDs. IUD is in place, has not checked for her string, never has. IUD has been in place for about 1 year. She denies tobacco use, social alcohol use and no recreational drug use. In the ED, leukocytosis noted at 25,000 with bandemia of 16. Lactate elevated at 2.3, BUN 15, Cr 1.1. HCG negative. Ua negative and u tox negative. Abdominal CT obtained which revealed soft tissue prominence in the region of the R ovary with moderately dense fluid and or soft tissue within the adnexal regions and pelvis, not well characterized without IV contrast. She was treated with 2 L NS bolus along with Zosyn and Flagyl. Dr Plummer, general surgery consulted in ED, please see note. SHe will be admitted inpatient for sepsis secondary to possible PID or tubal ovarian abscess. Diagnosis: Stroke: No - Discharge Data Discharge Date: 11/10/18 Discharge Disposition: DC/Tfer to Acute Hospital 02 Condition: Fair - Discharge Diagnosis/Problem(s) (1) Sepsis SNOMED Code(s): 33970797 ICD Code: A41.9 - SEPSIS, UNSPECIFIED ORGANISM Status: Acute (2) Abdominal pain SNOMED Code(s): 51938400 ICD Code: R10.9 - UNSPECIFIED ABDOMINAL PAIN Status: Acute Priority: High (3) PID (acute pelvic inflammatory disease) SNOMED Code(s): 854297826 ICD Code: N73.0 - ACUTE PARAMETRITIS AND PELVIC CELLULITIS Status: Suspected (4) IUD (intrauterine device) in place SNOMED Code(s): 776187467, 252468320 ICD Code: Z97.5 - PRESENCE OF (INTRAUTERINE) CONTRACEPTIVE DEVICE Status: Chronic - Patient Summary/Data Consults: Consultations 11/09/18 12:41 Consult to Physician [CONS] Stat 11/09/18 12:43 Consult to Physician [CONS] Stat - Patient Instructions Diet: NPO (as of 1500) - Discharge Plan *PRESCRIPTION DRUG MONITORING PROGRAM REVIEWED*: Not Applicable *COPY OF PRESCRIPTION DRUG MONITORING REPORT IN PATIENT MACO: Not Applicable Home Medications: Home Meds . [No Known Home Meds] 07/04/14 [History] Patient Handouts: Sepsis, Adult, Ovarian Cyst, [id number] Referrals: [facility] [Outside] Roro Knutson MD [Physician] - 11/16/18 1:30 pm - Discharge Summary/Plan Comment DC Time >30 min.: No Discharge Summary/Plan Comment: Discharge Diagnoses: Developing abscess in rectouterine space Abdominal pain Roxana was admitted and treated for sepsis secondary to suspected PID. She has been worked up for PID, G/C still pending. Positive for BV. Dr Huntley, [employer] saw patient this morning and suggested repeated CT with contrast to further evaluate abdominal due to leukocytosis that remained elevated at 23,000. She was treated with Zosyn and Flagyl. CT this afternoon reveals mildly organized fluid collection within the rectouterine space measuring 7.5 cm x 3.5 cm. I spoke with both Dr Kirk, general surgery and Dr Ward, [employer] who both recommend transfer for IR to drain this abscess. I discussed CT findings with patient who agrees with transfer to [place] at this time I spoke with Dr Joseph in the ED, who has accepted the patient for transfer at this time. I discussed findings with Dr Briones, who agrees with transfer as well. - General Info Date of Service: 11/10/18 Admission Dx/Problem (Free Text: I have examined the patient independently of Tabby Griggs CNP. I have discussed the case with her. I agree with the assessment and plan of care for this patient as outlined by her. Please see orders. Consider PID, testing pending. Subjective Update: Continues to have pain to RLQ, some improvement. No chest pain or SOB. Functional Status: Reports: Pain Controlled, Ambulating, Urinating - Review of Systems General: Reports: Malaise. Denies: Fever, Weakness HEENT: Reports: No Symptoms Pulmonary: Reports: No Symptoms. Denies: Shortness of Breath Cardiovascular: Reports: No Symptoms. Denies: Chest Pain Gastrointestinal: Reports: Abdominal Pain (localized to RLQ but diffusely ), Nausea. Denies: Decreased Appetite, Difficulty Swallowing Genitourinary: Reports: No Symptoms. Denies: Dysuria, Frequency, Burning Musculoskeletal: Reports: No Symptoms Skin: Reports: No Symptoms Neurological: Reports: No Symptoms Psychiatric: Reports: No Symptoms - Patient Data Vitals - Most Recent: Last Vital Signs Temp 97.4 F 11/10/18 15:45 Pulse 104 H 11/10/18 15:45 Resp 16 11/10/18 15:45 BP 102/63 11/10/18 15:45 Pulse Ox 97 11/10/18 15:45 Weight - Most Recent: 71.668 kg I&O - Last 24 hours: Intake & Output 11/10/18 11/10/18 11/10/18 06:59 14:59 22:59 Intake Total 5716 482 7008 Balance 4717 291 3641 Lab Results - Last 24 hrs: Laboratory Results - last 24 hr 11/10/18 11/10/18 Range/Units 05:25 05:25 WBC 23.40 H (4.0-11.0) K/uL RBC 3.79 L (4.30-5.90) M/uL Hgb 11.3 L (12.0-16.0) g/dL Hct 34.7 L (36.0-46.0) % MCV 91.6 (80.0-98.0) fL MCH 29.8 (27.0-32.0) pg MCHC 32.6 (31.0-37.0) g/dL RDW Std Deviation 46.6 (28.0-62.0) fl RDW Coeff of Kina 14 (11.0-15.0) % Plt Count 245 (150-400) K/uL MPV 10.00 (7.40-12.00) fL Add Manual Diff YES Neutrophils % (Manual) 81 H (48.0-80.0) % Band Neutrophils % 12 % Lymphocytes % (Manual) 6 L (16.0-40.0) % Monocytes % (Manual) 1 (0.0-15.0) % Nucleated RBC % 0.0 /100WBC Absolute Seg Neuts 19.0 H (1.4-5.7) Band Neutrophils # 2.8 Lymphocytes # (Manual) 1.4 (0.6-2.4) Monocytes # (Manual) 0.2 (0.0-0.8) Nucleated RBCs # 0 K/uL Sodium 141 (136-145) mmol/L Potassium 3.7 (3.5-5.1) mmol/L Chloride 109 H (98-107) mmol/L Carbon Dioxide 23.3 (21.0-32.0) mmol/L BUN 8 (7.0-18.0) mg/dL Creatinine 0.9 (0.6-1.0) mg/dL Est Cr Clr Drug Dosing 83.95 mL/min Estimated GFR (MDRD) > 60.0 ml/min Glucose 114 H (74-106) mg/dL Calcium 8.8 (8.5-10.1) mg/dL ZOE Results - Last 24 hrs: Microbiology 11/09/18 11:06 Aerobic Blood Culture - Preliminary Blood - Venous - Lab Draw NO GROWTH AFTER 1 DAY Anaerobic Blood Culture - Preliminary NO GROWTH AFTER 1 DAY 11/09/18 10:50 Aerobic Blood Culture - Preliminary Blood - Venous NO GROWTH AFTER 1 DAY Anaerobic Blood Culture - Preliminary NO GROWTH AFTER 1 DAY 11/09/18 14:00 Gram Stain - Preliminary Vagina Med Orders - Current: Current Medications Acetaminophen (Tylenol) 650 mg PO Q4H PRN PRN Reason: Pain (Mild 1-3)/fever Last Admin: 11/10/18 00:23 Dose: 650 mg Hydrocodone Bitart/Acetaminophen ([place] 325-5 Mg) 1 - 2 tab PO Q4H PRN PRN Reason: Pain (moderate 4-6) Last Admin: 11/10/18 05:17 Dose: 1 tab Docusate Sodium (Colace) 100 mg PO BID PRN PRN Reason: Constipation Metronidazole 500 mg/ Premix 100 mls @ 100 mls/hr IV Q6H FERMÍN Last Admin: 11/10/18 13:33 Dose: 100 mls/hr Piperacillin Sod/Tazobactam (Sod 3.375 gm/ Sodium Chloride) 50 mls @ 100 mls/ hr IV Q6H [facility] Last Admin: 11/10/18 12:03 Dose: 100 mls/hr Sodium Chloride (Normal Saline) 1,000 mls @ 125 mls/hr IV ASDIRECTED [facility] Last Admin: 11/10/18 12:06 Dose: 125 mls/hr Morphine Sulfate (Morphine) 2 mg IVPUSH Q2H PRN PRN Reason: Pain Ondansetron HCl (Zofran) 4 mg IVPUSH Q4H PRN PRN Reason: Nausea Last Admin: 11/10/18 10:08 Dose: 4 mg Discontinued Medications Hydromorphone HCl (Dilaudid) 1 mg IVPUSH ONETIME ONE Stop: 11/09/18 09:46 Last Admin: 11/09/18 12:14 Dose: 1 mg Sodium Chloride (Normal Saline) 1,000 mls @ 999 mls/hr IV STAT ONE Stop: 11/09/18 10:45 Last Admin: 11/09/18 10:04 Dose: 999 mls/hr Sodium Chloride (Normal Saline) 1,000 mls @ 999 mls/hr IV .Bolus ONE Stop: 11/09/18 12:02 Last Admin: 11/09/18 11:44 Dose: 999 mls/hr Piperacillin Sod/Tazobactam (Sod 3.375 gm/ Sodium Chloride) 50 mls @ 100 mls/ hr IV ONETIME ONE Stop: 11/09/18 12:36 Last Admin: 11/09/18 12:15 Dose: 100 mls/hr Metronidazole 500 mg/ Premix 100 mls @ 100 mls/hr IV ONETIME ONE Stop: 11/09/18 13:07 Last Admin: 11/09/18 13:31 Dose: 100 mls/hr Iopamidol (Isovue Multipack-370 (76%)) 100 ml IVPUSH ONETIME ONE Stop: 11/10/18 15:16 Last Admin: 11/10/18 15:15 Dose: 100 ml Ondansetron HCl (Zofran) 4 mg IVPUSH ONETIME ONE Stop: 11/09/18 09:46 Last Admin: 11/09/18 10:04 Dose: 4 mg - Exam General: Reports: Alert, Oriented, Cooperative, No Acute Distress Lungs: Reports: Clear to Auscultation, Normal Respiratory Effort Cardiovascular: Reports: Regular Rate, Regular Rhythm GI/Abdominal Exam: Normal Bowel Sounds, Soft, Tender (diffusely, mainly to RLQ) Wound/Incisions: Reports: Healing Well Neurological: Reports: No New Focal Deficit Psy/Mental Status: Reports: Alert, Normal Affect, Normal Mood <Brad Briones - Last Filed: 11/11/18 17:22> Discharge Summary - Hospital Course Free Text/Narrative:: I have seen and examined the patient independently of Tabby Griggs CNP. I have discussed the case with her. I agree with assessment and plan of care for this patient. The CT scan of abdomen and pelvis was read as having mildly organized fluid collection within the pelvis measuring roughly 7.5 x 3.5 cm. Representing developing abscess within the recto- uterine space. Also noted was a 4 x 6 cm otherwise simple appearing right adnexal cyst. Mesenteric stranding was also noted. Please see orders. - Patient Summary/Data Consults: Consultations 11/09/18 12:41 Consult to Physician [CONS] Stat 11/09/18 12:43 Consult to Physician [CONS] Stat - Patient Data Vitals - Most Recent: Last Vital Signs Temp 37.5 C 11/10/18 20:00 Pulse 113 H 11/10/18 20:00 Resp 15 11/10/18 20:00 BP 107/57 L 11/10/18 20:00 Pulse Ox 97 11/10/18 20:00 Lab Results - Last 24 hrs: Laboratory Results - last 24 hr 11/09/18 Range/Units 10:53 RPR Non Reactive (NonRea<1:1) ZOE Results - Last 24 hrs: Microbiology 11/09/18 14:00 Gram Stain - Final Vagina Genital Culture - Final Presumt. Gardnerella Vaginalis Normal Vaginal Marlee 11/09/18 11:06 Aerobic Blood Culture - Preliminary Blood - Venous - Lab Draw NO GROWTH AFTER 2 DAYS Anaerobic Blood Culture - Preliminary NO GROWTH AFTER 2 DAYS 11/09/18 10:50 Aerobic Blood Culture - Preliminary Blood - Venous NO GROWTH AFTER 2 DAYS Anaerobic Blood Culture - Preliminary NO GROWTH AFTER 2 DAYS Med Orders - Current: Current Medications Discontinued Medications Acetaminophen (Tylenol) 650 mg PO Q4H PRN PRN Reason: Pain (Mild 1-3)/fever Last Admin: 11/10/18 00:23 Dose: 650 mg Hydrocodone Bitart/Acetaminophen ([place] 325-5 Mg) 1 - 2 tab PO Q4H PRN PRN Reason: Pain (moderate 4-6) Last Admin: 11/10/18 19:18 Dose: 2 tab Docusate Sodium (Colace) 100 mg PO BID PRN PRN Reason: Constipation Hydromorphone HCl (Dilaudid) 1 mg IVPUSH ONETIME ONE Stop: 11/09/18 09:46 Last Admin: 11/09/18 12:14 Dose: 1 mg Sodium Chloride (Normal Saline) 1,000 mls @ 999 mls/hr IV STAT ONE Stop: 11/09/18 10:45 Last Admin: 11/09/18 10:04 Dose: 999 mls/hr Sodium Chloride (Normal Saline) 1,000 mls @ 999 mls/hr IV .Bolus ONE Stop: 11/09/18 12:02 Last Admin: 11/09/18 11:44 Dose: 999 mls/hr Piperacillin Sod/Tazobactam (Sod 3.375 gm/ Sodium Chloride) 50 mls @ 100 mls/ hr IV ONETIME ONE Stop: 11/09/18 12:36 Last Admin: 11/09/18 12:15 Dose: 100 mls/hr Metronidazole 500 mg/ Premix 100 mls @ 100 mls/hr IV ONETIME ONE Stop: 11/09/18 13:07 Last Admin: 11/09/18 13:31 Dose: 100 mls/hr Metronidazole 500 mg/ Premix 100 mls @ 100 mls/hr IV Q6H [facility] Last Admin: 11/10/18 19:17 Dose: 100 mls/hr Piperacillin Sod/Tazobactam (Sod 3.375 gm/ Sodium Chloride) 50 mls @ 100 mls/ hr IV Q6H [facility] Last Admin: 11/10/18 17:11 Dose: 100 mls/hr Sodium Chloride (Normal Saline) 1,000 mls @ 125 mls/hr IV ASDIRECTED [facility] Last Admin: 11/10/18 12:06 Dose: 125 mls/hr Iopamidol (Isovue Multipack-370 (76%)) 100 ml IVPUSH ONETIME ONE Stop: 11/10/18 15:16 Last Admin: 11/10/18 15:15 Dose: 100 ml Morphine Sulfate (Morphine) 2 mg IVPUSH Q2H PRN PRN Reason: Pain Ondansetron HCl (Zofran) 4 mg IVPUSH ONETIME ONE Stop: 11/09/18 09:46 Last Admin: 11/09/18 10:04 Dose: 4 mg Ondansetron HCl (Zofran) 4 mg IVPUSH Q4H PRN PRN Reason: Nausea Last Admin: 11/10/18 10:08 Dose: 4 mg
== END 2018-11-10 20:00 | DRG 872 ==
LOC: MW.ED 09:20 → MW.MS 13:05 → MW.ED 13:10
PROVIDERS: ADMIT Internal Medicine; ATTEND Internal Medicine
DX: A41.9 Sepsis, unspecified organism (principal); N73.9 Female pelvic inflammatory disease, unspecified; N70.93 Salpingitis and oophoritis, unspecified; Z97.5 Presence of (intrauterine) contraceptive device; N83.201 Unspecified ovarian cyst, right side; Z87.42 Personal history of other diseases of the female genital tract; Z90.79 Acquired absence of other genital organ(s); Z90.721 Acquired absence of ovaries, unilateral; N76.0 Acute vaginitis
CPT/HCPCS: 36415; 74176; 74176-26; 74177; 74177-26; 80048; 80053; 80305-QW; 81001; 83605; 84703; 85025; 86593; 87040; 87070; 87205; 87389; 87480; 87491; 87510; 87591; 87660; 96361; 96365; 96375; 99285-25; A9270-GY; J1170; J2405; J2543; J3490; J7040; J7050; Q9967